=== PATIENT | female | born 1995 | race Caucasian/White ===

== ENCOUNTER 2017-11-11 16:36 | Outpatient (REF) | payer BC, SELFPAY | END 2017-11-11 16:37 | LOC: NCHCN 16:36 | PROVIDERS: PCP Internal Medicine; Visit Provider Physician Assistant Medical | DX: R30.0 Dysuria (principal) | CPT/HCPCS: 87086 ==

== ENCOUNTER 2017-11-16 12:27 | Outpatient (REF) | payer BC, SELFPAY ==
--- NOTE | 2017-11-16 16:30 | PAPFTD_PTH ---
PATIENT: Elizabeth Andres LOC: NCN U#:[id number] AGE/SX: 21/F ROOM: RE11/16/[address]: Lou Younger : 1995 BED: DIS: 11/16/2017 SPEC #: [id number] RECD: 11/17/17 12:58 STATUS: JAISON REQ #: [id number] LUIS: 11/16/17 16:[address]: Lou Younger DEPT: [facility] Cytology RECD BY: Chantale Bustamante ENTERED: 11/17/17 12:58 SP TYPE: PAPFTD NESHAHR DR: Vitor Holder Tissues: 1 - CX/ENDOCX FOR PAP SMEARS Procedures: PAP THIN PREP/UVM Diagnostic HPV DNA PROBE Comments: [id number] (CHLAMYDIA GC)
[2017-11-18 14:09] LABS: Chlamydia Result Negative; GC Result Negative; Specimen Description SEE COMMENTS
== END 2017-11-16 12:28 ==
LOC: NCHCN 12:27
PROVIDERS: PCP Internal Medicine; Visit Provider Nurse Practitioner Family
DX: Z11.3 Encounter for screening for infections with a predominantly sexual mode of transmission (principal); Z12.4 Encounter for screening for malignant neoplasm of cervix; Z11.51 Encounter for screening for human papillomavirus (HPV)
CPT/HCPCS: 87491; 87591; 88175; 87624

== ENCOUNTER 2018-06-10 21:31 | Emergency (ER) | payer BC, SELFPAY ==
[2018-06-10 21:34] VITALS: BP 160/90; PULSE 84; RESP 18; TEMP 37; O2SAT 99
--- NOTE | 2018-06-10 21:57 | ED.GENADUL_ITS ---
Discharge Plan Disposition Patient Disposition: HOME Condition: Improving Discharge Details Chief Complaint: CONSULTING MANAGER Clinical Impression: Urinary tract infection Primary Care Provider: Vitor Holder ED Provider: Mike Williamson Home Meds and New Rx's Prescriptions: New cephalexin 500 mg tablet 500 mg PO TID 5 Days Qty: 15 RF: 0 metronidazole [Flagyl] 500 mg tablet 500 mg PO BID Qty: 14 RF: 0 No Action permethrin 60 GM cream 60 gm Topical DIRECTED Qty: 1 RF: 0 Discharge Instructions Instructions: Urinary Tract Infection in Women (ED) Additional Instructions: Home to rest tonight. Take antibiotics as prescribed. As per discussed, if you have persistent vaginal discharge and signs of bacterial vaginosis after the treatment for urinary tract infection, may begin the prescribed Flagyl. No alcohol with this medication. Follow-up with [facility] at [phone] or [facility] to establish [facility] care. Return to the emergency department for any acute concern Medical Decision Making 22-year-old female with vaginal discomfort that has been burning but not itching over 2 days time similar to previous BV. States that she was seen at [facility] unremarkable workup for STDs and does not have any current active sexual partners. She is afebrile and well-appearing. UA with numerous WBC, Vag path negative. She has a history of recurrent BV. We will treat her for UTI. Discussed with her prescription in a pocket approach for persistent signs of bacterial vaginosis and will offer her a prescription of Flagyl. She is to follow-up and establish gynecologic care other with [facility] or [facility] General Mode of arrival: ambulatory . Date/Time Provider Initiated Documentation: 06/10/18 21:38 . Limitations to Documentation: no limitations . Information obtained by: patient . History of Present Illness 22 year old F presents to the emergency department with the chief complaint of Burning vaginal irritation, described as moderate, Quality is described as burning, and is localized to the pelvis and genitals. Patient reports no radiation. Patient started experiencing this day(s) and it has been constant. No relieving factors improve symptom(s), No exacerbating factors reported . Patient notes no other symptoms.; denies fever/chills. Patient did receive the following treatments prior to arrival, other ([id number] Azo) Related Data Home Medications Medication Instructions Recorded Confirmed permethrin 60 gm TOPICAL DIRECTED #1 tube 07/03/17 cephalexin 500 mg PO TID 5 Days #15 tab 06/10/18 metronidazole [Flagyl] 500 mg PO BID #14 tab 06/10/18 Previous Rx's Medication Instructions Recorded permethrin 60 gm TOPICAL DIRECTED #1 tube 07/03/17 cephalexin 500 mg PO TID 5 Days #15 tab 06/10/18 metronidazole [Flagyl] 500 mg PO BID #14 tab 06/10/18 Allergies Allergy/AdvReac Type Severity Reaction Status Date / Time No Known Allergies Allergy Unverified 07/03/17 11:36 General Stated Complaint: CONSULTING MANAGER ANETA: 3 Review of Systems Review of Systems 8 systems reviewed and otherwise neg [facility] Social History Smoking and Tabacco status: Never Exam Narrative Exam Narrative: GEN: awake, alert, oriented 3. Pleasant, well groomed, interactive. HEAD: Normocephalic, atraumatic ENT: Mucous membranes moist, oropharynx unremarkable, External ear exam unremarkable EYES: PERRL, EOMI NECK: Full ROM, no DIMITRI, no menigismus CHEST/RESP: Nontender, clear to auscultation bilateral, no wheeze/rhonchi/rales CARDIOVASCULAR: RRR, no murmur, rub home. 2+ Rad pulse bilateral ABDOMEN: Soft, nontender, no mass. +Bowel sounds. Vaginal exam reveals whitish discharge at vaginal introitus, no tenderness or mass EXT: Full ROM, no edema, no rash Neuro: Grossly normal neurologic exam, conversant, interactive. Psych: Speech fluent, thoughts congruent, affect normal Course Vital Signs Temperature 37.0 C 06/10/18 21:34 Pulse 84 06/10/18 21:34 Respiratory Rate 18 06/10/18 21:34 Blood Pressure 160/90 H 06/10/18 21:34 Pulse Oximetry 99 06/10/18 21:34 Temperature 37.0 C 06/10/18 21:34 Temperature Source Temporal Artery Scan 06/10/18 21:34 Pulse 84 06/10/18 21:34 Respiratory Rate 18 06/10/18 21:34 Blood Pressure 160/90 H 06/10/18 21:34 Blood Pressure Position Sitting 06/10/18 21:34 Pulse Oximetry 99 06/10/18 21:34 Oxygen Delivery Method Room Air 06/10/18 21:34 Oxygen Flow Rate 0 06/10/18 21:34 Pain Level 4 06/10/18 21:34
[2018-06-10 22:12] LABS: Clarity Cloudy
[2018-06-10 22:14] LABS: Epithelial Cells Many HPF (Negative); RBC Negative (0-2); WBC 20-50 HPF (0-5)
[2018-06-10 22:15] LABS: Bacteria Moderate HPF (Negative); C & S Indicated? No/Sq. Contamination; Casts Negative LPF (Negative); Crystals Negative HPF (Negative); Mucus Negative (Negative); Other Cells Negative (Negative)
[2018-06-10] MEDS: Cephalexin 500 MG CAP PO (23:02)
== END 2018-06-10 23:10 | disposition home or self-care (01) ==
PROVIDERS: Emergency Provider Emergency Medicine; PCP Internal Medicine
DX: N39.0 Urinary tract infection, site not specified (principal)
CPT/HCPCS: 81025; 99283; 81003; 81015; 87480; 87510; 87660

== ENCOUNTER 2019-11-16 19:17 | Outpatient (REF) | payer MEDICAID, SELFPAY ==
[2019-11-16 19:45] LABS: Anion Gap 8.4 mmol/L (3-11); BUN 19 mg/dL (7-18); CO2 26.6 mmol/L (21.0-32.0); CREATININE 0.85 mg/dL (0.55-1.02); Calcium 9.5 mg/dL (8.5-10.1); Chloride 106 mmol/L (98-107); Glucose 75 mg/dL (74-106); Magnesium 1.9 mg/dL (1.8-2.4); Potassium 4.4 mmol/L (3.5-5.1); Sodium 141 mmol/L (136-145); TSH (W/Ref FT4) 0.75 uIU/mL (0.36-3.74)
== END 2019-11-16 19:37 ==
LOC: NCHCN 19:17
PROVIDERS: PCP Internal Medicine; Visit Provider Nurse Practitioner Family
DX: R03.0 Elevated blood-pressure reading, without diagnosis of hypertension (principal); R00.2 Palpitations; Z87.59 Personal history of other complications of pregnancy, childbirth and the puerperium
CPT/HCPCS: 80048; 83735; 84443

== ENCOUNTER 2020-02-12 21:19 | Outpatient (REF) | payer MEDICAID, SELFPAY ==
[2020-02-21 17:57] LABS: SARS-CoV-2 RNA Undetected (Undetected); SARS-CoV-2 Specimen Source Nasal/Nares
== END 2020-02-12 21:39 ==
LOC: NCHCN 21:19
PROVIDERS: PCP Internal Medicine; Visit Provider Internal Medicine
DX: Z20.828 Contact with and (suspected) exposure to other viral communicable diseases (principal)
CPT/HCPCS: U0003

== ENCOUNTER 2020-04-10 15:19 | Outpatient (REF) | payer MEDICAID, SELFPAY ==
[2020-04-13 08:03] LABS: Chlamydia Result Negative (Negative); GC Result Negative (Negative)
== END 2020-04-10 15:39 ==
LOC: NCHCN 15:19
PROVIDERS: PCP Internal Medicine; Visit Provider Nurse Practitioner Family
DX: N89.8 Other specified noninflammatory disorders of vagina (principal); Z11.3 Encounter for screening for infections with a predominantly sexual mode of transmission
CPT/HCPCS: 87491; 87591; 87480; 87510; 87660

== ENCOUNTER 2021-07-31 13:00 | Outpatient (REF) | payer MEDICAID, SELFPAY ==
[2021-07-31 19:30] LABS: Abs Immature Grans 0.01 10^3/uL (0.0-0.06); Absolute Basophil Count 0.05 10^3/uL (0.0-0.2); Absolute Eosinophil Count 0.11 10^3/uL (0.0-0.7); Absolute Lymphocyte Count 1.11 10^3/uL (1.2-3.4); Absolute Neutrophil Count 3.92 10^3/uL (1.2-6.7); Basophils % 0.9; HCT 41.5 % (36.0-46.0); HGB 13.3 g/dL (11.2-15.7); Immature Grans % 0.2; Lymphocytes % 19.8; MCH 29.8 pg (27.0-33.0); MCV 92.8 fL (80-95); Monocytes % 7.1; Platelet Count 266 10^3/uL (130-400); RBC 4.47 10^6/uL (3.93-5.22); RDW 12.4 % (11.7-14.6); RDW-SD 42.6 fL
[2021-08-04 12:42] LABS: IgA 175 mg/dL (85-499); Interpretation (See Note); Tissue Transglutaminase IgA <1.2 U/mL (<4.0)
== END 2021-07-31 13:01 | disposition home or self-care (01) ==
LOC: NCHCN 13:00
PROVIDERS: PCP Internal Medicine; Visit Provider Nurse Practitioner Family
DX: R19.7 Diarrhea, unspecified (principal)
CPT/HCPCS: 82784; 83516; 87329; 87338; 83630; 85025

== ENCOUNTER 2021-08-04 19:05 | Outpatient (REF) | payer MEDICAID, SELFPAY ==
[2021-08-06 14:34] LABS: Helicobacter pylori Ag, Feces Negative (Negative)
== END 2021-08-04 19:06 | disposition home or self-care (01) ==
LOC: NCHCN 19:05
PROVIDERS: PCP Internal Medicine; Visit Provider Nurse Practitioner Family
DX: R19.7 Diarrhea, unspecified (principal)
CPT/HCPCS: 87329; 87338; 83630

== ENCOUNTER 2021-08-04 21:16 | Outpatient (REF) | payer MEDICAID, SELFPAY | END 2021-08-04 21:17 | disposition home or self-care (01) | LOC: NCHCN 21:16 | PROVIDERS: PCP Internal Medicine; Visit Provider Nurse Practitioner Family ==

== ENCOUNTER → 2023-01-15 00:56 | Outpatient (CLI) | payer MEDICAID, SELFPAY ==
--- NOTE | 2023-01-15 | DI.US_ITS ---
Exam(s) US ABDOMEN EXAM: US ABDOMEN CLINICAL HISTORY: ELEVATED LFT'S R79.89 EPIGASTRIC PAIN R10.13 TECHNIQUE: Ultrasound abdomen performed using standard protocol. COMPARISON: No exams were available for comparison FINDINGS: LIVER: Normal size and echogenicity. No focal liver lesions are seen. GALLBLADDER: No evidence of cholelithiasis. No evidence of wall thickening. No pericholecystic fluid identified. ORDAZ'S SIGN: Negative. BILIARY SYSTEM: No intrahepatic or extrahepatic biliary ductal dilation. KIDNEYS: Kidneys are symmetric in size. No evidence of renal calculi. No evidence of hydronephrosis. No renal mass or cyst identified. PANCREAS: Normal where visualized. SPLEEN: Not enlarged. ABDOMINAL AORTA AND IVC: Visualized portions normal caliber. ASCITES: None seen. IMPRESSION: Normal sonographic appearance of the upper abdomen. DATA REPOSITORY:
== END ==
PROVIDERS: PCP Internal Medicine; Visit Provider Nurse Practitioner Family
DX: R10.13 Epigastric pain (principal); R79.89 Other specified abnormal findings of blood chemistry
CPT/HCPCS: 76700

== ENCOUNTER 2023-06-28 19:30 | Outpatient (REF) | payer MEDICAID, SELFPAY ==
[2023-06-28 21:03] LABS: Source Nasal/Nares
[2023-06-28 22:41] LABS: COVID-19 PCR Negative (Negative)
[2023-06-28 23:23] LABS: MRSA PCR Negative (Negative)
== END 2023-06-28 19:31 | disposition home or self-care (01) ==
LOC: LBN 19:30
PROVIDERS: PCP Nurse Practitioner Family; Visit Provider Nurse Practitioner Family
DX: J02.9 Acute pharyngitis, unspecified (principal); J34.89 Other specified disorders of nose and nasal sinuses; Z11.2 Encounter for screening for other bacterial diseases; Z11.52 Encounter for screening for COVID-19
CPT/HCPCS: 87635; 87641; 87070

== ENCOUNTER 2023-08-15 07:56 | Emergency (ER) | payer MEDICAID, SELFPAY ==
[2023-08-15 08:06] VITALS: BP 141/96; PULSE 74; RESP 16; TEMP 36.4; O2SAT 100
--- NOTE | 2023-08-15 08:14 | DI.RAD_ITS ---
Exam(s) XR FOOT RT COMPLETE EXAM: XR FOOT RT COMPLETE CLINICAL HISTORY: right foot pain, 1st metatarsal. TECHNIQUE: 2D digital imaging was performed. Three views. COMPARISON: No exams were available for comparison FINDINGS: BONES: No acute fracture is present. No bony destructive lesion is seen. JOINTS: No dislocation present. SOFT TISSUE: Normal. IMPRESSION: Unremarkable radiographs of the right foot. DATA REPOSITORY: RADIATION DOSE DELIVERED:
--- NOTE | 2023-08-15 09:28 | DI.VRAD_ITS ---
PROCEDURE INFORMATION: Exam: XR Right Foot Exam date and time: 08/15/2023 8:24 AM Age: 27 years old Clinical indication: Pain; Foot; Right TECHNIQUE: Imaging protocol: Radiologic exam of the right foot. Views: 3 or more views. COMPARISON: MRI R LOWER JOINT WO CONT 02/26/2017 3:50 PM FINDINGS: Bones/joints: Normal. Soft tissues: Normal. IMPRESSION: No acute findings. Dictated and Authenticated by: Allen Diallo MD. Ordering:INGE Kenyon MD
--- NOTE | 2023-08-15 12:00 | ED.GENADUL_ITS ---
Discharge Plan Disposition Patient Disposition: Home Condition: Stable Discharge Details Clinical Impression: Foot fracture, right Primary Care Provider: Shena Morrow ED Provider: Chantale Sheridan Home Meds and New Rx's Prescriptions: Continued fluoxetine 40 mg capsule 40 mg PO DAILY Discharge Instructions Additional Instructions: motrin/tylenol for pain use crutches and post op shoe follow-up with orthopedics next week return earlier with worsening pain, skin discoloration, or should new concerns arise Referrals: Shena Morrow [Primary Care Provider] - HPI General Date/Time Provider Initiated Documentation: 08/15/23 08:07 . HPI Narrative: this 27-year-old female presents with right foot pain. Patient denies any additional injuries. States that she kicked a rock. Denies chance of . Related Data Home Medications Medication Instructions Recorded Confirmed fluoxetine 40 mg capsule 40 mg PO DAILY 12/09/21 08/15/23 Allergies Allergy/AdvReac Type Severity Reaction Status Date / Time No Known Allergies Allergy Unverified 08/15/23 08:20 General Stated Complaint: Orthopedic ANETA: 4 Course Vital Signs Vital signs: Vital Signs Temperature 36.4 C L 08/15/23 08:06 Pulse 74 08/15/23 08:06 Respiratory Rate 16 08/15/23 08:06 Blood Pressure 141/96 H 08/15/23 08:06 Pulse Oximetry 100 08/15/23 08:06 Temperature 36.4 C L 08/15/23 08:06 Temperature Source Temporal Artery Scan 08/15/23 08:06 Pulse 74 08/15/23 08:06 Respiratory Rate 16 08/15/23 08:06 Respiratory Effort Normal, Non-Labored 08/15/23 08:24 Blood Pressure 141/96 H 08/15/23 08:06 Pulse Oximetry 100 08/15/23 08:06 Oxygen Delivery Method Room Air 08/15/23 08:06 Oxygen Flow Rate 0 08/15/23 08:06 Medical Decision Making This 27-year-old female presents with right foot pain. She states she kicked a rock. She denies chance of and has tenderness between the first and second metatarsal, there is some swelling and reproducible tenderness at this site. She is neurovascularly intact. Denies any additional complaints at this time. On x-ray I am concerned that she has a fracture to her proximal metatarsal, this looks like an avulsion. She will be placed in a postop shoe and given crutches and referred to orthopedics for reassessment. On reassessment vRad has interpreted the x-ray is negative but she has point tenderness over the area of concern, I will refer to orthopedics and have patient take Motrin and Tylenol for supportive care. Return precautions reviewed and patient expressed understanding Quality:SDOH Health Related Social Needs: No Data to Display PFSH All Active Problems (Updated 08/15/23 @ 09:02 by NITHYA Knight) Foot fracture, right (Acute) Heavy menstrual bleeding (Acute) Pelvic pain (Acute) Anxiety (Chronic) Depression (Chronic) Medical History (Updated 08/15/23 @ 09:02 by NITHYA Knight) Inflammatory bowel disease Hypertension affecting Anemia Family History (Updated 12/09/21 @ 11:56 by Olivia Seth, RN) Other Family history of clotting disorder Hyperlipidemia Hypertension Osteoporosis Stroke Thyroid disease Social History (Updated 12/09/21 @ 12:01 by Olivia Seth RN) Smoking/Tobacco Use Status: Never Smoking risk assessment performed?: Yes Alcohol Intake: current Alcohol Intake frequency: a few times a month Drug use: Never Household members: children current occupation: Resident Physician Do you feel safe at home: Yes Do you feel safe in your relationship?: Yes Female Reproductive History Menstrual Duration of menses: 3-5 days control method: none History History 1 Para 1 Hx # Term Pregnancies Multiple births Hx # Pregnancies Ectopic pregnancies AB induced Hx Number of Living Children AB spontaneous Past Pregnancies Del. Date GA/Weeks # Preg Succ Route Wgt Sex Labor Lgth Anesth esia Location [facility] 08/29/19 40 No Yes vaginal 3401.943 g Male Delivery Date: 08/29/19 Last Updated by: Olivia Seth pt reports pre- eclampsia- [place], born in [place], [place]
== END 2023-08-15 09:33 | disposition home or self-care (01) ==
PROVIDERS: Emergency Provider Physician Assistant; PCP Nurse Practitioner Family
DX: S92.901A Unspecified fracture of right foot, initial encounter for closed fracture (principal); W22.8XXA Striking against or struck by other objects, initial encounter; Y93.89 Activity, other specified
CPT/HCPCS: 99283; 73630

== ENCOUNTER 2024-03-08 15:03 | Outpatient (REF) | payer MEDICAID, SELFPAY ==
--- OUTSIDE RECORDS SUMMARY | 2024-03-08 15:06 | XMS_ITS | Encounter Summary ---
[place] [address] Care Team Providers Care Subway Operator Name Role Phone Vitor Holder MD Primary Care Provider Reason for Referral * Consultation (Routine) - Closed Specialty Diagnoses / Procedures Referred By Contac t Referred To Contact Gastroenterology Diagnoses Rectal pain Diarrhea, unspecified type 5 year history of chronic diarrhea, rectal pain; predominant IBS Procedures Consult Shena Morrow APRN [address] [place] [id number] [facility] [address] [place] [phone] Referral ID Status Reason Start Date Expiration Date V isits Requested Visits Authorized [id number] Closed Consult, Test & Treat PCP Updated and/or Approved 08/05/2021 08/05/2022 6 6 Encounter Details Date Type Department Care Team (Late st Contact Info) Description 08/05/2021 Transcribe Orders eD Incoming Referrals [phone] Meghan Ace Rectal pain; Diarrhea, unspecified type Social History Tobacco Use Types Packs/Day Years Used Date Smoking Tobacco: Never Assessed Sex and Gender Information Value Date Recorded Sex Assigned at Not on file Gender Identity Not on file Sexual Orientation Not on file documented as of this encounter Plan of Treatment Scheduled Referrals Name Type Priority Associated Diagnoses Order Schedule Referral to Gastroenterology Outpatient Referral Routine Rectal pain Diarrhea, unspecified type Ordered: 08/05/2021 documented as of this encounter Visit Diagnoses Diagnosis Rectal pain Anal or rectal pain Diarrhea, unspecified type documented in this encounter Care Teams Subway Operator Relationship Specialty Start Date End Date Vitor Holder MD [address] [address] PCP - General 03/04/10 08/19/21 documented as of this encounter
--- OUTSIDE RECORDS SUMMARY | 2024-03-08 15:06 | XMS_ITS | Encounter Summary ---
Author Organization [facility] Address [address] [place] [address] Care Team Providers Care Sleeve Bottom Feller Name Role Phone Unknown, Provider Primary Care Provider Laya martinez Encounter Details Date Type Department Care Team (Late st Contact Info) Description 08/07/2021 Lab Requisition [facility] Pathology & Laboratory Medicine - [address] [phone] Outr Resulting Lab, Provider Social History Tobacco Use Types Packs/Day Years Used Date Smoking Tobacco: Never Assessed Comments Unknown Sex and Gender Information Value Date Recorded Sex Assigned at Not on file Legal Sex Female 18:17 EST Gender Identity Not on file Sexual Orientation Not on file documented as of this encounter Plan of Treatment Not on file documented as of this encounter Procedures Procedure Name Priority Date/Time Associated Diagnosis Comments H. PYLORI ANTIGEN Routine 08/07/2021 19: 13 EDT documented in this encounter Results * H. PYLORI ANTIGEN (08/07/2021 19:13 EDT) H. Pylori Negative Negative 08/11/2021 13:46 EDT [facility] Comment:Performance characte ristics have not been established for watery, diahrrheal stools. Suggest repeat testing if clinically indicated. Feces SPECIMEN FROM RECTUM / Unknown 08/07/2021 19:13 EDT 08/08/2021 20:40 EDT Narrative [facility] - 08/11/2021 13:46 EDT Results were obtained with the [place] [facility] [place]. us Provider Outr Resulting Lab MICROBIOLOGY - GENER AL ORDERABLES Final Result [facility] [address] [place] [address] documented in this encounter Visit Diagnoses Not on filedocumented in this encounter Care Teams Sleeve Bottom Feller Relationship Specialty Start Date End Date Unknown, Provider, PCP - General 11/18/17 documented as of this encounter
--- OUTSIDE RECORDS SUMMARY | 2024-03-08 15:06 | XMS_ITS | Encounter Summary ---
Author Organization [facility] Address [facility] [place] [address] Care Team Providers Care Clinical Laboratory Technician Name Role Phone Shena Morrow APRN Primary Care Provider [phone] Encounter Details Date Type Department Care Team (Late st Contact Info) Description 10/01/2021 Notes [place] [id number] Evelyn Martinez APRN [facility] [place] [address] Social History Tobacco Use Types Packs/Day Years Used Date Smoking Tobacco: Never Assessed Sex and Gender Information Value Date Recorded Sex Assigned at Not on file Gender Identity Not on file Sexual Orientation Not on file documented as of this encounter Progress Notes * Evelyn Martinez APRN - 10/01/2021 8:18 AM EDTSummary: Missed telehealth visit for GI Tried calling patient for telehealth visit: sent straight to and VM is full. Unable to leave message; pt will need to reschedule documented in this encounter Plan of Treatment Not on file documented as of this encounter Visit Diagnoses Not on filedocumented in this encounter Care Teams Clinical Laboratory Technician Relationship Specialty Start Date End Date Shena Morrow APRN [address] [place] [address] PCP - General Family Medicine 08/20/21 documented as of this encounter
--- OUTSIDE RECORDS SUMMARY | 2024-03-08 15:06 | XMS_ITS | Encounter Summary ---
Author Organization [facility] Address [address] [place] [address] Care Team Providers Care Fire Control System Installer Name Role Phone Unknown, Provider Primary Care Provider Unava ilable Encounter Details Date Type Department Care Team (Late st Contact Info) Description 06/08/2019 Lab Requisition [facility] Pathology & Laboratory Medicine - [address] [address] Catrina Lee, VISUAL MERCHANDISING DIRECTOR [address] [place] [id number] Dysuria Social History Tobacco Use Types Packs/Day Years [...] Procedure Name Priority Date/Time Associated Diagnosis Comments BACTERIAL CULTURE, URINE Today 06/08/2019 12:35 EST Dysuria documented in this encounter Results * (ABNORMAL) BACTERIAL CULTURE, URINE (06/08/2019 12:35 EST) Organism ID Greater than 100,000 CFU/ml Escherichia coli(A) VITEK SUSCEPTIBILITY 06/10/2019 11:19 EST [facility] Comment: Cefazolin susceptibility results can be used to predict susceptibility results for the following oral cephalosporins when used for therapy of uncomplicated UTIs due to E.coli, K.pneumoniae, and P.mirabilis: cefaclor, cefdinir, cefpodoxime, cefprozil, cefuroxime, cephalexin, loracarbef. Cefdinir, cefpodoxime, and cefuroxime may be tested individually because some isolates may be susceptibile to these agents while testing resistance to cefazolin. Please note that only cefpodoxime and cephalexin are on the [facility] inpatient formulary. Urine URINE SPECIMEN OBTAINED BY CLEAN CATCH PROCEDURE / Unknown 06/08/2019 12:35 EST 06/08/2019 17:00 EST Narrative Organism Antibiotic Method Susceptibility Escherichia coli Ampicillin VITEK SUSCEPTIBILITY <=2 ug/mL: Susceptible Escherichia coli Cefazolin VITEK SUSCEPTIBILITY <=4 ug/mL: Susceptible Escherichia coli Ceftriaxone VITEK SUSCEPTIBILITY <=1 ug/mL: Susceptible Escherichia coli Ciprofloxacin VITEK SUSCEPTIBILITY <=0.25 ug/mL: Susceptible Escherichia coli Ertapenem VITEK SUSCEPTIBILITY <=0.5 ug/mL: Susceptible Escherichia coli Meropenem VITEK SUSCEPTIBILITY <=0.25 ug/mL: Susceptible Escherichia coli Nitrofurantoin VITEK SUSCEPTIBILITY <=16 ug/mL: Susceptible Escherichia coli Piperacillin Tazobactam VITEK SUSCEPT IBILITY <=4 ug/mL: Susceptible Escherichia coli Trimethoprim-Sulfame thox azole VITEK SUSCEPTIBILITY <=20 ug/mL: Susceptible us Catrina Lee NP MICROBIOLOGY - GENERAL JULIEN BELLA Final Result [facility] [address] [place] [address] documented in this encounter Visit Diagnoses Diagnosis Dysuria documented in this encounter Care Teams Fire Control System Installer Relationship Specialty Start Date End Date Unknown, Provider, PCP - General 11/18/17 documented as of this encounter
--- OUTSIDE RECORDS SUMMARY | 2024-03-08 15:06 | XMS_ITS | Encounter Summary ---
Author Organization [facility] Address [address] [place] [address] Care Team Providers Care Battery Tester Name Role Phone Unknown, Provider Primary Care Provider Laya ilphoebe Encounter Details Date Type Department Care Team (Late st Contact Info) Description 08/05/2021 Lab Requisition [facility] Pathology & Laboratory Medicine - [address] [id number] Outr Resulting Lab, Provider Social History Tobacco [...] Associated Diagnosis Comments H. PYLORI ANTIGEN Routine 08/04/2021 12: 17 EDT documented in this encounter Results * H. PYLORI ANTIGEN (08/04/2021 12:17 EDT) H. Pylori Negative Negative 08/06/2021 14:29 EDT [facility] Feces SPECIMEN FROM RECTUM / Unknown 08/04/2021 12:17 EDT 08/06/2021 8:21 EDT Narrative [facility] - 08/06/2021 14:29 EDT Results were obtained with the [employer] [place] [facility] [place]. us Provider Outr Resulting Lab MICROBIOLOGY - GENER AL ORDERABLES Final Result [facility] [address] [place] [address] documented in this encounter Visit Diagnoses Not on filedocumented in this encounter Care Teams Battery Tester Relationship Specialty Start Date End Date Unknown, Provider, PCP - General 11/18/17 documented as of this encounter
--- OUTSIDE RECORDS SUMMARY | 2024-03-08 15:06 | XMS_ITS | Referral Summary ---
Author Organization [facility] Address [address] [place] [address] Care Team Providers Care Diabetes Specialist Name Role Phone Unknown, Provider Primary Care Provider Unava ilable Encounters Date Type Department Care Team Description 01/06/2024 Lab Requisition [facility] Pathology & Laboratory Medicine - [address] [address] Reyna Rodriguez CNM Encounter for screening for human papillomavirus (HPV); Encounter for gynecological examination (general) (routine) without abnormal findings from Last 3 Months Social History Tobacco Use Types Packs/Day Years Used Date Smoking Tobacco: Never Assessed Comments Unknown Sex and Gender Information Value Date Recorded Sex Assigned at Not on file Legal Sex Female 18:17 EST Gender Identity Not on file Sexual Orientation Not on file Plan of Treatment Not on file Procedures Procedure Name Priority Date/Time Associated Diagnosis Comments PAP TEST Today 01/06/2024 14:20 EDT Encounter for screening for human papillomavirus (HPV) Encounter for gynecological examination (general) (routine) without abnormal findings HEPATITIS C AB W REFLEX TO HCV RNA BY PCR Routine 04/16/2022 8:45 EST from Last 3 Months or Most Recently Relevant to Health Maintenance Results * PAP TEST (01/06/2024 14:20 EDT) Specimens A. Cervix and/or Endocervix , ThinPrep Imaging System with Manual Evaluation 01/17/2024 15:36 EDT [facility] Specimen Adequacy Unsatisfactory for evaluation-Insuf ficient number of squamous epithelial cells. Specimen processed and examined but compromised by excess blood. 01/17/2024 15:36 EDT [facility] General Categorization Unsatisfactory 01/17/2024 15:36 EDT [facility] Educational Comments An additional slide was prepared and evaluated. Unsatisfactory - Specimen processed and examined, but unsatisfactory for evaluation of epithelial abnormality. Recommend repeat age-based screening after 2-4 months per ASCCP Guidelines which may be found at www.asccp.org. HPV testing will not be performed due to the potential for false negative results. 01/17/2024 15:36 EDT [facility] Attestation . 01/17/2024 15:36 EDT [facility] at 1536 Clinical History See below 01/17/20 15:36 T [facility] Performing Lab [facility] 01/17/2024 15:36 T [facility] Scanned Images 01/17/2024 15:36 EDT [facility] Pap Test CERVIX UTERI STRUCTURE / Unknown 01/06/2024 14:20 EDT 01/07/2024 12:33 EDT us Reyna Rodriguez [facility] PATHOLOGY ORDERABLES Fin al Result [facility] [address] [place] [address] * HEPATITIS C AB W REFLEX TO HCV RNA BY PCR (04/16/2022 8:45 EST) Hep C Antibody Negative Negative 04/17/2022 10:06 EST [facility] Blood VENOUS BLOOD / Unknown 04/16/2022 8:45 EST 04/16/2022 21:29 EST us Provider Outr Resulting Lab CHEMISTRY & BLOOD GA S ORDERABLES Final Result [facility] [address] [place] [address] from Last 3 Months or Most Recently Relevant to Health Maintenance Care Teams Diabetes Specialist Relationship Specialty Start Date End Date Unknown, Provider, PCP - General 11/18/17
--- OUTSIDE RECORDS SUMMARY | 2024-03-08 15:06 | XMS_ITS | Encounter Summary ---
Author Organization [facility] Address [address] [place] [address] Care Team Providers Care Abrasive Coating Machine Operator Name Role Phone Unknown, Provider Primary Care Provider Unazachary ilable Encounter Details Date Type Department Care Team (Late st Contact Info) Description 04/16/2022 Lab Requisition [facility] Pathology & Laboratory Medicine - [address] [address] Outr Resulting Lab, Provider Social History Tobacco [...] Procedure Name Priority Date/Time Associated Diagnosis Comments SYPHILIS SEROLOGY Routine 04/16/2022 8:4 5 EST HEPATITIS C AB W REFLEX TO HCV RNA BY PCR Routine 04/16/2022 8:45 EST RUBELLA IGG ANTIBODY Routine 04/16/2022 8:45 EST HEPATITIS B SURFACE ANTIGEN Routine 04/16/2022 8:45 EST HIV 1/2 ANTIGEN AND ANTIBODY, 4TH GENERATION Routine 04/16/2022 8:45 EST documented in this encounter Results * HEPATITIS C AB W REFLEX TO HCV RNA BY PCR (04/16/2022 8:45 EST) Hep C Antibody Negative Negative 04/17/2022 10:06 EST [facility] Blood VENOUS BLOOD / Unknown 04/16/2022 8:45 EST 04/16/2022 21:29 EST us Provider Outr Resulting Lab CHEMISTRY & BLOOD GA S ORDERABLES Final Result Performing Organization Address [facility] Co de Phone Number [facility] [address] [place] [address] * HIV 1/2 ANTIGEN AND ANTIBODY, 4TH GENERATION (04/16/2022 8:45 EST) HIV 1 and 2 Antibody/p24 Antigen, 4th Generation Negative Negative 04/17/2022 9:55 EST [facility] Comment:If acute HIV-1 infec tion is suspected in a high risk patient, submit plasma specimen for HIV-1 RNA quantitation test. Blood VENOUS BLOOD / Unknown 04/16/2022 8:45 EST 04/16/2022 21:29 EST Narrative [facility] - 04/17/2022 9:55 EST Fourth Generation assay performed on the Siemens Centaur XPT. us Provider Outr Resulting Lab IMMUNOLOGY AND SEROL OGY ORDERABLES Final Result Performing Organization Address [facility] Co de Phone Number [facility] [address] [place] [address] * SYPHILIS SEROLOGY (04/16/2022 8:45 EST) Syphilis Serology Negative Negative 04/17/2022 11:19 EST [facility] Blood VENOUS BLOOD / Unknown 04/16/2022 8:45 EST 04/16/2022 21:29 EST us Provider Outr Resulting Lab IMMUNOLOGY AND SEROL OGY ORDERABLES Final Result Performing Organization Address [facility]/ZIP Co de Phone Number [facility] [address] [place] [address] * RUBELLA IGG ANTIBODY (04/16/2022 8:45 EST) Rubella IgG Ab Positive See Note 04/17/2022 11:21 EST [facility] Comment:Positive for IgG ant ibodies to Rubella virus. Blood VENOUS BLOOD / Unknown 04/16/2022 8:45 EST 04/16/2022 21:29 EST us Provider Outr Resulting Lab CHEMISTRY & BLOOD GA S ORDERABLES Final Result Performing Organization Address [facility] Co de Phone Number [facility] [address] [place] [address] * HEPATITIS B SURFACE ANTIGEN (04/16/2022 8:45 EST) Hep B Surface Ag Negative Negative 04/17/2022 10:16 EST [facility] Blood VENOUS BLOOD / Unknown 04/16/2022 8:45 EST 04/16/2022 21:29 EST us Provider Outr Resulting Lab CHEMISTRY & BLOOD GA S ORDERABLES Final Result Performing Organization Address [facility] de Phone Number [facility] [address] [place] [address] documented in this encounter Visit Diagnoses Not on filedocumented in this encounter Care Teams Abrasive Coating Machine Operator Relationship Specialty Start Date End Date Unknown, Provider, PCP - General 11/18/17 documented as of this encounter
--- OUTSIDE RECORDS SUMMARY | 2024-03-08 15:06 | XMS_ITS | Encounter Summary ---
Author Organization [facility] Address [address] [place] [address] Care Team Providers Care Electric Well Logging Operator Name Role Phone Unknown, Provider Primary Care Provider Laya martinez Encounter Details Date Type Department Care Team (Late st Contact Info) Description 12/06/2020 Lab Requisition [facility] Pathology & Laboratory Medicine - [address] [id number] Outr Resulting Lab, Provider Social History Tobacco [...] Procedure Name Priority Date/Time Associated Diagnosis Comments CHLAMYDIA/N. GONORRHOEAE AMPLIFIED NUCLEIC ACID, THINPREP Routine 12/06/2020 14:51 EDT documented in this encounter Results * CHLAMYDIA/N. GONORRHOEAE AMPLIFIED RNA, THINPREP (12/06/2020 14:51 EDT) Neisseria gonorrhoeae Result Negative Negative 12/09/2020 15:11 EDT [facility] Chlamydia trachomatis Result Negative Negative 12/09/2020 15:11 EDT [facility] Papanicolaou smear specimen (specimen) CERVIX UTERI STRUCTURE / Unknown 12/06/2020 14:51 EDT 12/09/2020 8:34 EDT us Provider Outr Resulting Lab MICROBIOLOGY - GENER AL ORDERABLES Final Result [facility] [address] [place] [address] documented in this encounter Visit Diagnoses Not on filedocumented in this encounter Care Teams Electric Well Logging Operator Relationship Specialty Start Date End Date Unknown, Provider, PCP - General 11/18/17 documented as of this encounter
--- OUTSIDE RECORDS SUMMARY | 2024-03-08 15:06 | XMS_ITS | Encounter Summary ---
Author Organization [facility] Address [address] [place] [address] Care Team Providers Care Senior Marketing Engineer Name Role Phone Unknown, Provider Primary Care Provider Unazachary ilable Encounter Details Date Type Department Care Team (Latest Contact Info) Description 12/06/2020 Lab Requisition [facility] Pathology & Laboratory Medicine - [address] [address] Reyna Rodriguez, [address] [address] Encounter for gynecological examination (general) (routine) without abnormal findings Social History Tobacco Use Types Packs/Day Years [...] Date/Time Associated Diagnosis Comments PAP TEST Today 12/06/2020 14:51 EDT documented in this encounter Results * PAP TEST (12/06/2020 14:51 EDT) Specimens A. 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 Reactive cellular changes associated with inflammation present (includes repair). 12/23/2020 9:22 EDT [facility] Attestation By the signature below, the attending physician certifies that they have personally conducted a gross and/or microscopic examination of the described specimens and rendered or confirmed the above diagnosis. 12/23/2020 9:22 EDT [facility] at 0922 Clinical History Clinical History, Signs, Symptoms, Chief Complaint, Pertaining to This Order: See below Other Clinical History/Order Comments: 11.27 NEG 12/23/2020 9:22 EDT [facility] Performing Lab [facility] 12/23/2020 9:22 EDT [facility] Scanned Images 12/23/2020 9:22 EDT [facility] Papanicolaou smear specimen (specimen) CERVIX UTERI STRUCTURE / Unknown 12/06/2020 14:51 EDT 12/09/2020 15:44 EDT us Reyna Rodriguez [facility] PATH[facility] ORDERABLES Fin al Result [facility] [address] [place] [address] documented in this encounter Visit Diagnoses Diagnosis Encounter for gynecological examination (general) (routine) without abnormal findings documented in this encounter Care Teams Senior Marketing Engineer Relationship Specialty Start Date End Date Unknown, Provider, PCP - General 11/18/17 documented as of this encounter
--- OUTSIDE RECORDS SUMMARY | 2024-03-08 15:06 | XMS_ITS | Encounter Summary ---
Author Organization [facility] Address [address] [place] [address] Care Team Providers Care Curator Medical Museum Name Role Phone Unknown, Provider Primary Care Provider Laya ilphoebe Encounter Details Date Type Department Care Team (Late st Contact Info) Description 04/11/2020 Lab Requisition [facility] Pathology & Laboratory Medicine - [address] [address] Outr Resulting Lab, Provider Social History Tobacco [...] Associated Diagnosis Comments CHLAMYDIA/N. GONORRHOEAE AMPLIFIED NUCLEIC ACID Routine 04/10/2020 11:30 EST documented in this encounter Results * CHLAMYDIA/N. GONORRHOEAE AMPLIFIED RNA (04/10/2020 11:30 EST) Neisseria gonorrhoeae Result Negative Negative 04/13/2020 7:[address] [facility] Chlamydia trachomatis Result Negative Negative 04/13/2020 7:[address] [facility] Urine URINE / Unknown 04/10/2020 1 1:30 EST 04/11/2020 18:[address] [facility] - 04/13/2020 7:58 EST A first catch urine specimen is acceptable for detection of Gonorrhea and Chlamydia, but might detect up to 10% fewer infections when compared with vaginal and endocervical swab samples. us Provider Outr Resulting Lab MICROBIOLOGY - [facility] AL ORDERABLES Final Result [facility] [address] [place] [address] documented in this encounter Visit Diagnoses Not on filedocumented in this encounter Care Teams Curator Medical Museum Relationship Specialty Start Date End Date Unknown, Provider, PCP - General 11/18/17 documented as of this encounter
--- OUTSIDE RECORDS SUMMARY | 2024-03-08 15:06 | XMS_ITS | Encounter Summary ---
Author Organization [facility] Address [address] [place] [address] Care Team Providers Care Mail Clerk Bills Name Role Phone Unknown, Provider Primary Care Provider Laya martinez Encounter Details Date Type Department Care Team (Latest Contact Info) Description 01/06/2024 Lab Requisition [facility] Pathology & Laboratory Medicine - [address] [address] Reyna Rodriguez, [address] [phone] Encounter for screening for human papillomavirus (HPV); [...] without abnormal findings documented in this encounter Results * PAP TEST (01/06/2024 14:20 EDT) Specimens A. Cervix and/or Endocervix , ThinPrep Imaging System with Manual Evaluation 01/17/2024 15:36 EDT [facility] Specimen Adequacy Unsatisfactory for evaluation-Insuf ficient number of squamous epithelial cells. Specimen processed and examined but compromised by excess blood. 01/17/2024 15:36 EDT [facility] General Categorization Unsatisfactory 01/17/2024 15:36 EDT [facility] Educational Comments An additional slide was prepared and evaluated. Unsatisfactory - Specimen processed and examined, but unsatisfactory for evaluation of epithelial abnormality. Recommend repeat age-based screening after 2-4 months per ASCCP Guidelines which may be found at www.asccp.org. HPV testing will not be performed due to the potential for false negative results. 01/17/2024 15:36 EDT [facility] Attestation . 01/17/2024 15:36 EDT [facility] at 1536 Clinical History See below 01/17/20 15:36 EDT [facility] Performing Lab [facility] 01/17/2024 15:36 T [facility] Scanned Images 01/17/2024 15:36 T [facility] Pap Test CERVIX UTERI STRUCTURE / Unknown 01/06/2024 14:20 EDT 01/07/2024 12:33 EDT us Reyna Rodriguez [facility] PATHOLOGY ORDERABLES Fin al Result [facility] [address] [place] [address] documented in this encounter Visit Diagnoses Diagnosis Encounter for screening for human papillomavirus (HPV) Special screening examination for human papillomavirus (HPV) Encounter for gynecological examination (general) (routine) without abnormal findings documented in this encounter Care Teams Mail Clerk Bills Relationship Specialty Start Date End Date Unknown, Provider, PCP - General 11/18/17 documented as of this encounter
--- OUTSIDE RECORDS SUMMARY | 2024-03-08 15:06 | XMS_ITS | Clinical Summary ---
Author Organization [facility] [place] [address] Care Team Providers Care Seismic Computer Name Role Phone Shena Morrow APRN Primary Care Provider +1- [phone] Social History Tobacco Use Types Packs/Day Years Used Date Smoking Tobacco: Never Assessed Sex and Gender Information Value Date Recorded Sex Assigned at Not on file Gender Identity Not on file Sexual Orientation Not on file Plan of Treatment Health Maintenance Due Date Last Done Comments HIV screen 2014 Hepatitis C Screening 2014 Hepatitis B vaccine (0-59 yrs) (1) 12/27/2015 Tetanus/Diphtheria/Pertussis Vaccines (1 - Tdap) 12/26 PAP Smear 2017 Covid-19 Vaccine ( - 2023-25 season) 2023 Influenza (Flu) vaccine (1 o f 1 - Influenza standard series) 12/12/2023 Care Teams Seismic Computer Relationship Specialty Start Date End Date Shena Morrow APRN [address] [place] [address] PCP - General Family Medicine 08/20/21
--- OUTSIDE RECORDS SUMMARY | 2024-03-08 15:06 | XMS_ITS | Encounter Summary ---
Author Organization [facility] [place] [address] Care Team Providers Care Operations Welder Name Role Phone Shena Morrow APRN Primary Care Provider +1- [phone] Encounter Details Date Type Department Care Team (Late st Contact Info) Description 09/30/2021 Telephone [place] [phone] Teri Tillman Social History Tobacco Use Types Packs/Day Years Used Date Smoking Tobacco: Never Assessed Sex and Gender Information Value Date Recorded Sex Assigned at Not on file Gender Identity Not on file Sexual Orientation Not on file documented as of this encounter Miscellaneous Notes * Telephone Encounter - Teri Tillman - 09/30/2021 10:06 AM EDT The GI Telehealth Educate Team attempted to contact patient to check their readiness for their upcoming telehealth visit in GI. We were unable to reach the patient and unable to leave a message as the voicemail box was full. Teri Clinical [facility] documented in this encounter Plan of Treatment Not on file documented as of this encounter Visit Diagnoses Not on filedocumented in this encounter Care Teams Operations Welder Relationship Specialty Start Date End Date Shena Morrow APRN [address] [place] [address] PCP - General Family Medicine 08/20/21 documented as of this encounter
--- OUTSIDE RECORDS SUMMARY | 2024-03-08 15:06 | XMS_ITS | Encounter Summary ---
Author Organization [facility] Address [facility] [place] [address] Care Team Providers Care Engineering Technical Analyst Name Role Phone Shena Morrow APRN Primary Care Provider +1- [phone] Encounter Details Date Type Department Care Team (Latest Contact Info) Description 08/20/2021 10:02 PM EDT - 08/20/2021 11:59 PM EDT [place] [address] Discharge Disposition: Home Social History Tobacco Use Types Packs/Day Years Used Date Smoking Tobacco: Never Assessed Sex and Gender Information Value Date Recorded Sex Assigned at Not on file Gender Identity Not on file Sexual Orientation Not on file documented as of this encounter Plan of Treatment Not on file documented as of this encounter Procedures Procedure Name Priority Date/Time Associated Diagnosis Comments SURGICAL PATHOLOGY REPORT Routine 08/20/2021 12:00 PM EDT documented in this encounter Results * Surgical Pathology Report (08/20/2021 12:00 PM EDT) Final Diagnosis [id number] ? Location: [facility] The signing pathologist has (i) examined the relevant preparation(s) for the specimen(s) and (ii) rendered or confirmed the diagnosis(es). . ?Surgical Pathology DIAGNOSIS A - Gastric antrum mucosal bx: - ??Antrum-type mucosa with mild chronic gastritis ?? (see Note). Note: ??Immunostaining for H. pylori is negative. B - GE junction mucosal bx: - ??Squamocolumnar junctional mucosa (cardia type) with mild chronic inflammation. There is no evidence of intestinal metaplasia. C - Terminal ileum mucosal bx: - ??Ileal mucosa, negative for diagnostic abnormality. D - Right colon random mucosal bx: - ??Colonic mucosa, negative for diagnostic abnormality. E - Left colon random mucosal bx: - ??Colonic mucosa, negative for diagnostic abnormality. F - Rectal colon random mucosal bx: - ??Colonic mucosa, negative for diagnostic abnormality. CR-PX Electronically signed by: ?Hernando Wilson MD Verified: ??08/25/2021 14:08 ??Pathologist Performed at: ??-[facility] Dept. of Pathology, [place], [place] ADDITIONAL STUDIES Immunohistochemistry Studies: Formalin-fixed, paraffin-embedded tissue sections are studied using the polymer technique with appropriate positive and negative controls. ?These IHC studies provide the pathologist with adjunctive diagnostic information. Antibody specificity has been verified by testing antibodies on a series of in-house tissues with known immunohistochemical performance characteristics. The clinical interpretation of any antibody positive staining or its absence is evaluated within the context of clinical presentation, morphology, histopathological criteria and other diagnostic tests. Block ? Antibody ?Result (Positive/Negative) A1 ? H. PYLORI ?See note SPECIMEN(S) SUBMITTED A - Gastric antrum mucosal bx B - GE junction mucosal bx C - Terminal ileum mucosal bx D - Right colon random mucosal bx E - Left colon random mucosal bx F - Rectal colon random mucosal bx . SPECIMEN(S) SUBMITTED Referring Identifier: ??[id number] CLINICAL INFORMATION Normal SPECIMEN PROCESSING A - Labeled/Fixative: Gastric antrum mucosal biopsy, formalin. Quantity/Size: Two, 0.1 and 0.4 cm. Tissue Description: Soft, roy-pink tissues. Sections/Processing: Submitted en toto ??in 1 cassette labeled A1. B - Labeled/Fixative: GE junction mucosal biopsy, formalin. Quantity/Size: Two, 0.3 and 0.4 cm. Tissue Description: Soft, pink tissues. Sections/Processing: Submitted en toto ??in 1 cassette labeled B1. C - Labeled/Fixative: Terminal ileum mucosa biopsy, formalin. Quantity/Size: Two, 0.2 and 0.4 cm. Tissue Description: Soft, pink tissues. Sections/Processing: Submitted en toto ??in 1 cassette labeled C1. D - Labeled/Fixative: Right colon random mucosal BX, formalin. Quantity/Size: Four, ranging from 0.2-0.5 cm. Tissue Description: Soft, roy tissues. Sections/Processing: Submitted en toto ??in 1 cassette labeled D1. E - Labeled/Fixative: Left colon random mucosal BX, formalin. Quantity/Size: Five, ranging 0.1-0.4 cm. Tissue Description: Soft, pink tissues. Sections/Processing: Submitted en toto ??in 1 cassette labeled 1. F - Labeled/Fixative: Rectal colon random mucosal BX, formalin. Quantity/Size: Two, 0.2 and 0.5 cm. Tissue Description: Soft, pink tissues. Sections/Processing: Submitted en toto ??in 1 cassette labeled F1. ??sns 08/25/2021 2:08 PM EDT [facility] GI Biopsy 08/20/2021 12:0 0 PM EDT 08/20/2021 12:00 PM EDT GI Biopsy 08/20/2021 12:0 0 PM EDT 08/20/2021 12:00 PM EDT GI Biopsy 08/20/2021 12:0 0 PM EDT 08/20/2021 12:00 PM EDT GI Biopsy 08/20/2021 12:0 0 PM EDT 08/20/2021 12:00 PM EDT GI Biopsy 08/20/2021 12:0 0 PM EDT 08/20/2021 12:00 PM EDT GI Biopsy 08/20/2021 12:0 0 PM EDT 08/20/2021 12:00 PM EDT Nancy Mason MD PATHOLOGY/CYTOLOGY O RDERABLES [facility] [place] [place] [address] documented in this encounter Visit Diagnoses Not on filedocumented in this encounter Care Teams Engineering Technical Analyst Relationship Specialty Start Date End Date Shena Morrow APRN [address] [place] [address] PCP - General Family Medicine 08/20/21 documented as of this encounter
--- OUTSIDE RECORDS SUMMARY | 2024-03-08 15:06 | XMS_ITS | Encounter Summary ---
Author Organization [facility] Address [address] [place] [address] Care Team Providers Care Floral Department Specialist Name Role Phone Unknown, Provider Primary Care Provider Unazachary ilable Encounter Details Date Type Department Care Team (Late st Contact Info) Description 05/21/2022 Lab Requisition [facility] Pathology & Laboratory Medicine - [address] [address] Outr Resulting Lab, Provider Social History Tobacco [...] Comments CHLAMYDIA/N. GONORRHOEAE AMPLIFIED NUCLEIC ACID Routine 05/21/2022 13:39 EST documented in this encounter Results * CHLAMYDIA/N. GONORRHOEAE AMPLIFIED RNA (05/21/2022 13:39 EST) Neisseria gonorrhoeae Result Negative Negative 05/22/2022 12:41 EST [facility] Chlamydia trachomatis Result Negative Negative 05/22/2022 12:41 EST [facility] Swab ENTIRE VAGINA / Unknown 05/21/2022 13:39 EST 05/21/2022 23:02 EST us Provider Outr Resulting Lab MICROBIOLOGY - GENER AL ORDERABLES Final Result [facility] [address] [place] [address] documented in this encounter Visit Diagnoses Not on filedocumented in this encounter Care Teams Floral Department Specialist Relationship Specialty Start Date End Date Unknown, Provider, PCP - General 11/18/17 documented as of this encounter
--- OUTSIDE RECORDS SUMMARY | 2024-03-08 15:06 | XMS_ITS | Encounter Summary ---
Author Organization [facility] [place] [address] Care Team Providers Care Fish Salter Name Role Phone Shena Morrow APRN Primary Care Provider +1- [phone] Encounter Details Date Type Department Care Team (Late st Contact Info) Description 10/01/2021 Telephone [place] [phone] Renae Estrada CMA GASTROENTEROLOGY DEPT Social History Tobacco Use Types Packs/Day Years Used Date Smoking Tobacco: Never Assessed Sex and Gender Information Value Date Recorded Sex Assigned at Not on file Gender Identity Not on file Sexual Orientation Not on file documented as of this encounter Miscellaneous Notes * Telephone Encounter - Renae Estrada CMA - 10/01/2021 7:47 AM EDT Called patient to review medications and allergies for their upcoming gastroenterology Type of Appointment: Telehealth appointment. Reach Patient during MA Check: No, Did not leave a message Notes for the provider: Notes for the nurse: documented in this encounter Plan of Treatment Not on file documented as of this encounter Visit Diagnoses Not on filedocumented in this encounter Care Teams Fish Salter Relationship Specialty Start Date End Date Shena Morrow APRN [address] [place] [address] PCP - General Family Medicine 08/20/21 documented as of this encounter
--- OUTSIDE RECORDS SUMMARY | 2024-03-08 15:06 | XMS_ITS | Encounter Summary ---
Author Organization [facility] Address [address] [place] [address] Care Team Providers Care Crushing Machine Operator Name Role Phone Unknown, Provider Primary Care Provider Unava ilable Encounter Details Date Type Department Care Team (Late st Contact Info) Description 10/10/2019 Lab Requisition [facility] Pathology & Laboratory Medicine - [address] [address] Outr Resulting Lab, Provider Social History Tobacco [...] Comments CHLAMYDIA/N. GONORRHOEAE AMPLIFIED NUCLEIC ACID Routine 10/10/2019 16:02 EDT documented in this encounter Results * CHLAMYDIA/N. GONORRHOEAE AMPLIFIED RNA (10/10/2019 16:02 EDT) Neisseria gonorrhoeae Result Negative Negative 10/12/2019 13:55 EDT [facility] Chlamydia trachomatis Result Negative Negative 10/12/2019 13:55 EDT [facility] Swab ENTIRE VAGINA / Unknown 10/10/2019 16:02 EDT 10/10/2019 22:08 EDT us Provider Outr Resulting Lab MICROBIOLOGY - GENER AL ORDERABLES Final Result [facility] [address] [place] [address] documented in this encounter Visit Diagnoses Not on filedocumented in this encounter Care Teams Crushing Machine Operator Relationship Specialty Start Date End Date Unknown, Provider, PCP - General 11/18/17 documented as of this encounter
--- OUTSIDE RECORDS SUMMARY | 2024-03-08 15:06 | XMS_ITS | Encounter Summary ---
Author Organization [facility] Address [address] [place] [address] Care Team Providers Care Copra Sampler Name Role Phone Unknown, Provider Primary Care Provider Unazachary ilable Encounter Details Date Type Department Care Team (Late st Contact Info) Description 11/16/2017 Results Only [facility] [phone] John Younger, MEDICATION SPECIALIST [address] [place] [address] Social History Tobacco Use Types Packs/Day Years [...] Name Priority Date/Time Associated Diagnosis Comments PAP TEST- RESULT ONLY Routine 11/16/2017 0:00 EDT documented in this encounter Results * PAP TEST- RESULT ONLY (11/16/2017 0:00 EDT) Pathology Report: CYTOPATHOLOGY REPORT Reports generated via electronic interface contain original data; however they are lacking the format of the original report. Caution should be taken when reading/interpreti ng unformatted reports. Name: ? MARIA DEL CARMEN ATKINS ? Accession #: ? [id number] ? : ? 1995 (Age: 21) ??F ?Collect Date: ? 11/16/2017 ? Location: ? [facility] ? Receive Date: ? 11/18/2017 ? Provider: JOHN YOUNGER NP Copy to: ? Final Report SPECIMEN ADEQUACY ? Satisfactory for Evaluation - transformation zone component absent GENERAL CATEGORIZATION ? Negative for Intraepithelial Lesion or Malignancy ?? Last Menstrual Period: 10/19/17 Hormonal/Contracep tive status: Oral contraceptives Specimen/Source: ??Pap Test, Cervix, ThinPrep Imaging System with manual evaluation Document reviewed and electronically signed by: ? RICH Padron(ASCP) ? Report ??Date: 12/01/2017 14:02 HPV with Pap Test ? Date Ordered: ? 12/01/2017 ? Status: ?? Signed Out ?Date Complete: ? 12/02/2017 ? By: ??System Interface ? Date Reported: ? 12/02/2017 ? Interpretation RESULT: Negative for HPV. No E6 or E7 mRNA is detected from HPV types 16,18,31,33,35, 39,45,51,52,56,58, 59,66, and 68 by sander setter mediated amplification. Comments Document reviewed and electronically signed by: ? System Interface ? Report date: 12/02/2017 By the signature above, the attending physician certifies that he/she has personally conducted a gross and/or microscopic examination of the described specimens and rendered or confirmed the above diagnosis. End of Report [facility] 11/16/2017 11/18/2017 us John Younger NP PATHOLOGY ORDERABLES Final Res ult [facility] [address] [place] [address] documented in this encounter Visit Diagnoses Not on filedocumented in this encounter Care Teams Copra Sampler Relationship Specialty Start Date End Date Unknown, Provider, PCP - General 11/18/17 documented as of this encounter
--- OUTSIDE RECORDS SUMMARY | 2024-03-08 15:06 | XMS_ITS | Encounter Summary ---
Author Organization [facility] Address [address] [place] [address] Care Team Providers Care Event Executive Name Role Phone Unknown, Provider Primary Care Provider Laya martinez Encounter Details Date Type Department Care Team (Late st Contact Info) Description 08/01/2021 Lab Requisition [facility] Pathology & Laboratory Medicine - [address] [address] Outr Resulting Lab, Provider Social [...] Procedure Name Priority Date/Time Associated Diagnosis Comments CELIAC DISEASE PANEL Routine 07/31/2021 12:30 EDT documented in this encounter Results * CELIAC DISEASE PANEL (07/31/2021 12:30 EDT) Tissue Transglutaminase Antibody IGA <1.2 <4.0 U/mL 08/04/2021 12:37 EDT [facility] Comment: A negative result may be due to IgA deficiency and does not rule out celiac disease. ? Negative: ??<4.0 U/mL ? Weak Positive: ??4.0 - 10.0 U/mL ? Positive: ??>10.0 U/mL Results were obtained with the Companion CanineA Lite R h-tTG IgA MILTON assay on the [employer]. IgA 175 85 - 499 mg/dL 08/04/2021 12:37 EDT [facility] Celiac Disease Interpretation Negative Serology. Celiac disease unlikely. Approximately 10% of patients with celiac disease are seronegative. Patients who are already adhering to a gluten-free diet may also be seronegative. If celiac disease is highly clinically suspected, referral to gastroenterology for additional evaluation is recommended. 08/04/2021 12:37 EDT [facility] Blood VENOUS BLOOD / Unknown 07/31/2021 12:30 EDT 08/01/2021 17:08 EDT us Provider Outr Resulting Lab IMMUNOLOGY AND SEROL OGY ORDERABLES Final Result [facility] [address] [place] [address] documented in this encounter Visit Diagnoses Not on filedocumented in this encounter Care Teams Event Executive Relationship Specialty Start Date End Date Unknown, Provider, PCP - General 11/18/17 documented as of this encounter
--- OUTSIDE RECORDS SUMMARY | 2024-03-08 15:06 | XMS_ITS | Clinical Summary ---
Author Organization [facility] Address [address] [place] [address] Care Team Providers Care Pot Lining Supervisor Name Role Phone Unknown, Provider Primary Care Provider Unava ilable Encounters Date Type Department Care Team Description 01/06/2024 Lab Requisition [facility] Pathology & Laboratory Medicine - [address] [address] Reyna Rodriguez CNM Encounter for screening for [...] Health Maintenance Due Date Last Done Comments Hepatitis B Vaccine (1 of 3 - 19+ 3-dose series) 12/26 COVID-19 Vaccine ( season) 2023 Hepatitis C Screen Completed 04/16/2022 Procedures Procedure Name Priority Date/Time Associated Diagnosis [...] System with Manual Evaluation 01/17/2024 15:36 EDT [facility] Specimen Adequacy Unsatisfactory for evaluation-Insuf ficient number of squamous epithelial cells. Specimen processed and examined but compromised by excess blood. 01/17/2024 15:36 EDT [facility] General Categorization Unsatisfactory 01/17/2024 15:36 [facility] Educational Comments An additional slide was prepared and evaluated. Unsatisfactory - Specimen processed and examined, but unsatisfactory for evaluation of epithelial abnormality. Recommend repeat age-based screening after 2-4 months per ASCCP Guidelines which may be found at www.asccp.org. HPV testing will not be performed due to the potential for false negative results. 01/17/2024 15:36 T [facility] Attestation . 01/17/2024 15:36 [facility] at 1536 Clinical History See below 01/17/20 15:36 [facility] Performing Lab [facility] 01/17/2024 15:36 [facility] Scanned Images 01/17/2024 15:36 [facility] Pap Test CERVIX UTERI STRUCTURE / Unknown 01/06/2024 14:20 EDT 01/07/2024 12:33 EDT us Reyna Rodriguez [facility] PATHOLOGY ORDERABLES Fin al Result [facility] [address] [place] [id number] * HEPATITIS C AB W REFLEX TO HCV RNA BY PCR (04/16/2022 8:45 EST) Hep C Antibody Negative Negative 04/17/2022 10:06 EST [facility] Blood VENOUS BLOOD / Unknown 04/16/2022 8:45 EST 04/16/2022 21:29 EST us Provider Outr Resulting Lab CHEMISTRY & BLOOD GA S ORDERABLES Final Result [facility] [address] [place] [address] from Last 3 Months or Most Recently Relevant to Health Maintenance Care Teams Pot Lining Supervisor Relationship Specialty Start Date End Date Unknown, Provider, PCP - General 11/18/17
[2024-03-08 19:11] LABS: HCT 43.2 % (36.0-46.0); HGB 13.8 g/dL (11.2-15.7); MCH 29.4 pg (27.0-33.0); MCHC 31.9 % (32.0-36.0); MCV 92 fL (80-95); MPV 11.9 fL (8.0-11.0); Platelet Count 252 10^3/uL (130-400); RDW 13.4 % (11.7-14.6); RDW-SD 45.7 fL; WBC 5.79 10^3/uL (4.4-10.8)
[2024-03-08 19:31] LABS: ALT 33 U/L (14-59); AST 21 U/L (15-37); Albumin 3.9 g/dL (3.4-5.0); Alkaline Phosphatase 121 U/L (46-116); Anion Gap 8.2 mmol/L (3-11); BUN 11 mg/dL (7-18); CO2 26.8 mmol/L (21.0-32.0); CREATININE 0.7 mg/dL (0.55-1.02); Calcium 8.9 mg/dL (8.5-10.1); Chloride 107 mmol/L (98-107); Estimated GFR 121.49 (mL/min/1.73m2); Glucose 88 mg/dL (74-106); Potassium 4.3 mmol/L (3.5-5.1); Sodium 142 mmol/L (136-145); Total Protein 7.9 g/dL (6.4-8.2)
[2024-03-08 19:36] LABS: C-Reactive Protein < 0.50 mg/dL (<or=0.5)
== END 2024-03-08 15:04 | disposition home or self-care (01) ==
LOC: NCHCN 15:03
PROVIDERS: PCP Nurse Practitioner Family; Visit Provider Internal Medicine
DX: K62.5 Hemorrhage of anus and rectum (principal)
CPT/HCPCS: 80053; 85027; 86140

== ENCOUNTER 2024-03-14 18:40 | Outpatient (REF) | payer MEDICAID, SELFPAY | END 2024-03-14 18:41 | disposition home or self-care (01) | LOC: LBN 18:40 | PROVIDERS: PCP Nurse Practitioner Family; Visit Provider Nurse Practitioner Family | DX: J02.9 Acute pharyngitis, unspecified (principal) | CPT/HCPCS: 87070 ==

== ENCOUNTER 2024-04-11 01:12 | Outpatient (CLI) | payer MEDICAID, SELFPAY ==
--- NOTE | 2024-04-11 | DI.US_ITS ---
Exam(s) US ABDOMEN LIMITED EXAM: US ABDOMEN LIMITED CLINICAL HISTORY: RUQ PAIN R10.11 CHECK FOR BILIARY DISEASE, MILDLY ELEVATED ALK PHOS TECHNIQUE: Ultrasound abdomen performed using standard protocol. COMPARISON: US US ABDOMEN from 01/15/2023 FINDINGS: There is no ascites evident. LIVER: There are no hepatic lesions evident nor dilatation of intrahepatic ducts. GALLBLADDER/BILIARY: There are no gallstones. No gallbladder wall edema nor pericholecystic fluid. The common hepatic duct isnot dilated, measuring 3-4mm at the level of santiago hepatis. PANCREAS: There is no evidence of pancreatic mass nor dilatation of the pancreatic duct. RIGHT KIDNEY:No evidence of solid mass, calculus, nor hydronephrosis. No cortical cysts evident. IMPRESSION: 1. No evidence of cholelithiasis nor dilatation of the biliary tree. 2. No other significant ultrasound findings in the right upper quadrant. 3. There is no ascites. No significant change compared to prior ultrasound examination of January 2023. DATA REPOSITORY:
== END 2024-04-11 01:32 ==
LOC: DI 01:12
PROVIDERS: PCP Nurse Practitioner Family; Visit Provider Internal Medicine
DX: R10.11 Right upper quadrant pain (principal)
CPT/HCPCS: 76705

== ENCOUNTER 2024-04-20 05:04 | Outpatient (CLI) | payer MEDICAID, SELFPAY ==
[2024-04-20 17:18] LABS: Ferritin 49 ng/mL (8-252); TSH (W/Ref FT4) 1.29 uIU/mL (0.36-3.74)
[2024-04-20 17:38] LABS: C-Reactive Protein < 0.50 mg/dL (<or=0.5)
[2024-04-24 12:02] LABS: ANA Interpretation Negative (Negative)
== END 2024-04-20 05:05 | disposition home or self-care (01) ==
PROVIDERS: Surgery; PCP Nurse Practitioner Family; Visit Provider Internal Medicine
DX: R11.0 Nausea (principal); K21.9 Gastro-esophageal reflux disease without esophagitis; K62.5 Hemorrhage of anus and rectum; K52.9 Noninfective gastroenteritis and colitis, unspecified; R10.13 Epigastric pain; K58.9 Irritable bowel syndrome, unspecified; Z83.79 Family history of other diseases of the digestive system; Z13.88 Encounter for screening for disorder due to exposure to contaminants
CPT/HCPCS: 36415; 82728; 83655; 84443; 86038; 86140

== ENCOUNTER 2024-05-09 08:31 | Day surgery (SDC) | payer MEDICAID, SELFPAY ==
[2024-05-09 08:41] VITALS: BP 115/82; PULSE 80; RESP 16; TEMP 36.3; O2SAT 98
[2024-05-09] MEDS: Na Phosphate Enema-Adult 133 ML BTL PR (08:50)
[2024-05-09] MEDS: Lactated Ringers 1,000 ML 80 ML IV (09:25)
--- NOTE | 2024-05-09 09:40 | ANES.PREOP_ITS ---
General Info Date of Service Date Performed: 05/09/24 Height: 5 ft 5 in Weight: 71.5 kg Body Mass Index (BMI): 26.2 Surgical Procedure: Operation Date: 05/09/24 09:10 Proposed Procedure Side Surgeon p Flexible Sigmoidoscopy Gayatri Tarango, DO Meds Allergies and Home Medications Allergies Allergy/AdvReac Type Severity Reaction Status Date / Time No Known Allergies Allergy Verified 05/09/24 09:09 Home Medication ?Medication ?Instructions ?Recorded triamcinolone acetonide 0.1 % applic topical 05/09/24 topical cream Current Visit Medications: Current Medications Generic Name Dose Route Start Last Admin Trade Name Freq PRN Reason Stop Dose Admin Hyoscyamine Sulfate 0.125 mg 05/09/24 09:34 Hyoscyamine 0.125 Mg Sl/Oral/Chew SL 06/08/24 09:33 DIRECTED PRN Ringer's Solution 1,000 mls @ 80 mls/hr 05/09/24 08:00 05/09/24 09:25 IV 06/08/24 07:59 80 mls/hr INFUSION MOJGAN Administration IV Miscellaneous Supplies 1 each 05/09/24 06:00 Iv Access IV 05/09/24 23:59 DIRECTED MOJGAN Ondansetron HCl 4 mg 05/09/24 09:34 Ondansetron 4 Mg/2 Ml Vial IVP 06/08/24 09:33 Q4H PRN PRN Nausea / Vomiting Sodium Biphosphate/Sodium Phosphate 133 ml 05/09/24 06:00 Na Phosphate Enema-Adult 133 Ml Btl MT 05/09/24 23:59 DIRECTED MOJGAN Sodium Chloride 0 ml 05/09/24 06:00 Normal Saline Flush 10 Ml Syr IV 05/09/24 23:59 PRN PRN Sodium Chloride 0 ml 05/09/24 06:00 Normal Saline 10 Ml Vial IJ 05/09/24 23:59 DIRECTED PRN Sterile Water 0 ml 05/09/24 06:00 Water,Injection,Sterile 10 Ml Vial IJ 05/09/24 23:59 DIRECTED PRN PFSH Active Problems Active Problems: Problem Status Onset Code IBS (irritable bowel syndrome) Chronic K58.9 Nausea Acute R11.0 Chronic diarrhea Acute K52.9 Epigastric pain Acute R10.13 GERD (gastroesophageal reflux disease) Chronic K21.9 Painless rectal bleeding Acute K62.5 Heavy menstrual bleeding Acute N92.0 Pelvic pain Acute R10.2 Anxiety Chronic F41.9 Depression Chronic F32.A Medical History Medical History (Updated 04/13/24 @ 15:06 by Gayatri Tarango DO) Family history of Crohn's disease Endometriosis Inflammatory bowel disease Hypertension affecting Anemia Medical History Comments:: PT reports hx of pre-eclampsia with 2 pregnancies. Tobacco Smoking/Tobacco Use Status: Never Alcohol Alcohol Intake: current Alcohol intake frequency: a few times a month Alcohol type: beer Substance Use Substance use: Never Prental History History 2 1 Para 1 Hx # Term Pregnancies Multiple births Hx # Pregnancies Ectopic pregnancies AB induced Hx Number of Living Children AB spontaneous Past Pregnancies Del. Date GA/Weeks # Preg Succ Route Wgt Sex Labor Lgth Anesth esia Location [facility] 08/29/19 40 No Yes vaginal 3401.943 g Male Delivery Date: 08/29/19 Last Updated by: Olivia Seth pt reports pre- eclampsia- Rob[place], born in [place], [place] Vital Signs and Lab Results Vital Signs Most Recent Vital Signs in EMR: Most Recent Vital Signs Temp Pulse Resp BP Pulse Ox 36.3 C L 80 16 115/82 98 05/09/24 08:41 05/09/24 08:41 05/09/24 08:41 05/09/24 08:41 05/09/24 08:41 Lab Results Blood Type / Crossmatch: 2 No Data to Display Complete Blood Count: 2 No Data to Display Complete Metabolic Panel: 2 C-Reactive Protein < 0.50 mg/dL (<or=0.5) 04/20/24 15:58 Liver Function Panel: 2 No Data to Display Coagulation Panel: 2 No Data to Display Cardiac Panel: 2 No Data to Display Arterial Blood Gas: 2 No Data to Display Venous Blood Gas: 2 No Data to Display Pancreas Panel: 2 No Data to Display Thyroid Panel: 2 Thyroid Stimulating Hormone (TSH) 1.29 uIU/mL (0.36-3.74) 04/20 15:58 Infectious Disease: 2 No Data to Display Blood Cultures: 2 No Data to Display Toxicology Panel: 2 No Data to Display Panel: 2 No Data to Display Anesthesia Assessment and Plan Anesthesia History Personal History: PONV Family History: No Family History of Anesthesia Complications Exercise Tolerance Exercise Tolerance: Metabolic Equivalents>4 Pertinent Negatives Pertinent Negatives: No Symptoms of GERD (controlled), No Major Cardiovascular Symptoms or Complaints, No Major Pulmonary Symptoms or Complaints and No History of CVA/TIA Cardiac & Pulmonary Exam Cardiac Exam: Normal S1/S2 Heart Sounds Pulmonary Exam: Clear Bilateral Breath Sounds Implantable Cardiac Device Does patient have a Pacemaker or an ICD?: No Airway Exam Known Difficult Airway: No Mallampati Class: 2 Mouth Opening: Normal (> 3cm) Thyromental Distance: Greater than 3 cm Neck Range of Motion: Full ROM Neck Circumference: Normal Teeth Condition: Normal Dentition Tooth Numberin 1. Missing ASA Classification ASA Score: ASA 2 Emergency Case?: No NPO Status NPO Status: NPO Clears >2 hours, Solids >8 hours Status Status: Negative HCG Anesthesia Plan Resuscitation Status: Full Code Anesthesia Technique: General Anesthesia Airway Planned: Natural Airway Monitors Used: Standard Monitors Preoperative Comments:: Discussed PONV: Zofran prior to induction.
[2024-05-09 09:44] VITALS: BMI 26.2
--- NOTE | 2024-05-09 09:55 | BOWEL_PTH ---
PATIENT: Elizabeth Andres LOC: [facility] U#:[id number] AGE/SX: 28/F ROOM: RE05/09/[address]: Gayatri Tarango : 1995 BED: DIS: 05/09/2024 SPEC #: [id number] RECD: 05/09/24 12:24 STATUS: JAISON REQ #: [id number] LUIS: 05/09/24 09:[address]: Gayatri Tarango DEPT: Surgical Specimen RECD BY: Chantale Bustamante ENTERED: 05/09/24 12:26 SP TYPE: Bowel OTHR DR: Nathaly Morrow Tissues: 1 - BIOPSY BOWEL 2 - BIOPSY BOWEL 3 - BIOPSY BOWEL 4 - BIOPSY BOWEL Procedures: GROSS AND MICRO LEVEL 4 Comments: [id number]
[2024-05-09 10:09] VITALS: BP 106/87; PULSE 76; RESP 14; TEMP 36.7; O2SAT 97
--- NOTE | 2024-05-09 10:31 | COLE_ITS ---
Date of service: 05/09/24 Time of Service: 10:31 Colonoscopy Report Date of procedure: 05/09/24 Pre-op diagnosis general: Rectal bleeding Post-op diagnosis procedure note: other (Anal fissure) Procedure: sigmoidoscopy Surgeon: Gayatri Tarango Anesthesia Type: General:No Airway Estimated blood loss (mL): 1 Pathology: other Complications: None Disposition: same day Prep: Other (Enemas) Retraction Time: N/A Procedure Description: After informed consent was obtained, explaining risks of the procedure, including but not limits to: bleeding, infections, complications of anesthesia, perforations (which may require antibiotics and /or surgery and stay in the hospital), and abdominal pain/cramping. The patient was taken to the procedure room and placed in a left decubitous position. Monitors were applied and a time out was done. The patients name, date of , procedure, allergies to medications and metal in their body was reviewed. The patient was then sedated. Once sedated and comfortable a rectal exam was done. External exam in the left lateral position. Internal exam reveals a fissure in the left lateral position. It is 80% healed. There is no signs of infection. It is maybe 2 mm in size. The previously lubricated Olympus scope was then introduced (see RN notes for scope number) and retrofelexed. No internal hemorrhoids. There are some hemorrhoidal tags. The scope was then advanced to the right flexure without difficulty. No polyps or diverticula are noted. Biopsies are taken at: 70/40/20cm and rectum. With a cold biopsy forcep. All specimens are retrieved and no bleeding is noted. The mucosa is pink and healthy w/ a normal vascular pattern. The scope was removed, and the patient was woken up and taken back to Same day surgery in stable condition. The patient tolerated the procedure well and there were no immediate complications. Follow up: The patient should have a full colonoscopy at age 46 unless they develop changes in bowel habits or other new gastrointestinal complaints. [place] Bowel Prep [place] Bowel Prep Right Colon: 0 Left Colon: 3 Transverse Colon: 0 Total Score: 3
--- NOTE | 2024-05-09 10:34 | PDOC.DSDIS_ITS ---
Date of service: 05/09/24 Discharge Plan Disposition Patient Disposition: Home Condition: Good Discharge Details Reason For Visit: Sigmoidoscopy Attending Provider: Gayatri Tarango Primary Care Provider: Shena Morrow Home Meds and New Rx's Prescriptions: New nitroglycerin 0.4 % (w/w) ointment 1 inch MA BID 21 Days Qty: 30 6RF psyllium husk [Fiber (psyllium husk)] 0.4 gram capsule 0.4 g PO BID Qty: 60 12RF Discontinued triamcinolone acetonide 0.1 % cream TOPICAL Patient Comments: APPLY A THIN LAYER TO AFFECTED AREA(S) TOPICALLY TWO TIMES A DAY Discharge Instructions Additional Instructions: DSU Colonoscopy Post- Op Instructions Instructions for Everyone who is given Anesthesia: For your safety, please do the following for the next twenty-four (24) hours: *Do Not operate a motor vehicle (car, truck, motorcycle, etc.) *Do Not drink alcoholic beverages or use any recreational drugs for the first 24 hours or while taking pain medications. The medications in your body may have a reaction that can be dangerous. *Do Not make any important decisions or sign any important papers. Findings: Anal fissure Follow up: 4 to 6 weeks time Treatment: Make sure you are moving your bowels regularly and not straining. -Start a fiber product daily. I did put in a prescription for psyllium capsules. Most likely your insurance will not pay for these and they are generally considered an tgoy-bcm-[id number] medication. Start with 2 a day. Make sure you are moving your bowels regularly and not straining. You can take up to 8 caps a day. -I will place prescription for nitro ointment. Use this medication twice a day for 3 weeks. Make sure you wash your hands well after applying. This medicatio n can cause headaches. 1. No lifting over 20 pounds or strenuous activity for the first 24 hours after your procedure. After 24 hours there are no restrictions on your activity but you may feel fatigued for a few days. 2. After you arrive home you may have a light meal and return to your normal diet as you can tolerate it without feeling sick to your stomach. 3. You may have a bloated, gaseous feeling in your belly (abdomen) after a colonoscopy. Passing gas and belching will help. Walking or lying down on your left side with your knees flexed may relieve the discomfort. Call the office at [phone] (Office) or [phone] (Hospital) right away if you notice any of the following: a.Vomiting of blood or ?coffee ground stools?. b.Rectal bleeding 1Tbsp, blood clots or continuous bleeding. c.Severe belly (abdominal) pain. d.A hard distended belly (abdomen) and an inability to pass gas. 4. Please don?t expect to have a normal BM (bowel movement) for 2-3 days after your procedure. 5. If there are questions regarding the findings of your procedure, please contact your doctor 6. If you are unable to contact your doctor with a problem, contact the hospital at [phone]. 7. Continue all your regular medications unless directed otherwise. I understand the above instructions and have no questions. Signature of Patient or Adult Escort Name of Responsible Adult Escort Signature of Nurse Date/Time Stand Alone Forms: Anesthesia Discharge Inst., Darcy Rushing (DSGiselle) Activity:: See above Diet:: See above Discharge Orders Discharge Orders: Discharge Order (Routine); Ordered 01/28/25 Ordered By: Gayatri M Stoiber DS: Diagnosis Discharge Diagnosis (1) Chronic anal fissure: Status: Acute
[2024-05-09 10:47] VITALS: BP 120/97; PULSE 72; RESP 18; TEMP 36.5; O2SAT 100
--- NOTE | 2024-05-09 12:43 | W.ANESPOSTOP ---
Postoperative Evaluation Date, Time and Location Date Performed: 05/09/24 Time Performed: 10:12 Patient Location: Day Surgery Unit Vital Signs Most Recent Imported Vital Signs: Most Recent Vital Signs Temp Pulse Resp BP Pulse Ox 36.5 C 72 18 120/97 H 100 05/09/24 10:47 05/09/24 10:47 05/09/24 10:47 05/09/24 10:47 05/09/24 10:47 Pain Score Most Recent Pain Score: Most Recent Pain Score Pain Level 0 05/09/24 10:47 Assessment Mental Status: Awake (Alert & Oriented to Patient Baseline) Airway and Respiratory Function: Patent airway with normal (patient baseline) respiratory exam Cardiovascular Function: Hemodynamically Stable Hydration Status: Adequately Hydrated Nausea & Vomiting: No Nausea or Vomiting Pain: Pt. Denies Any Pain Peripheral Nerve Block: Patient did not receive a nerve block
== END 2024-05-09 11:11 | disposition home or self-care (01) ==
PROVIDERS: PCP Nurse Practitioner Family; Visit Provider Surgery
PROC: 0DJD8ZZ Inspection of Lower Intestinal Tract, Via Natural or Artificial Opening Endoscopic (ICD-10-PCS; CPT 45330; principal; 2024-05-09 09:00)
DX: K60.1 Chronic anal fissure (principal); K62.5 Hemorrhage of anus and rectum; K62.89 Other specified diseases of anus and rectum; K63.89 Other specified diseases of intestine
CPT/HCPCS: 45331; 81025; 88305; J2405; J2704

== ENCOUNTER 2024-06-18 15:16 | Emergency (ER) | payer MEDICAID, SELFPAY ==
[2024-06-18] VITALS (28 sets, daily range): BP systolic 100–158; BP diastolic 60–94; PULSE 69–122; RESP 7–39; TEMP 36.8–37.1; O2SAT 93–100
--- NOTE | 2024-06-18 15:15 | DI.CT_ITS ---
Exam(s) CT ABDOMEN PELVIS W EXAM: CT ABDOMEN PELVIS W zzz CLINICAL HISTORY: RLQ pain, ?appy, radiates into RUQ. TECHNIQUE: Imaging Protocol: Axial computed tomography images with coronal and sagittal reformatted images were created and reviewed CONTRAST MATERIAL: Intravenous: Omnipaque-350 100cc Oral: None COMPARISON: No exams were available for comparison FINDINGS: VISUALIZED LUNG BASES: No nodules nor pleural effusions evident. ABDOMEN: There is no ascites. LIVER: There are no discrete focal hepatic lesions. No dilated intrahepatic ducts. GALLBLADDER/BILIARY: No obvious gallbladder pathology. CBD is not dilated. PANCREAS: No evidence of pancreatic mass nor dilatation of the pancreatic duct. SPLEEN: Spleen is not enlarged. No obvious intrasplenic lesions. Splenic and portal veins are paten t. ADRENALS: There are no significant adrenal masses. KIDNEYS:No cysts evident. No solid renal masses. There is a tiny punctate 1 mm calculus in the upper pole calyx of the left kidney, nonobstructive. No calculi in the right kidney. There is no hydrone phrosis nor hydroureter on either side. Urinary bladder is collapsed. ABDOMINAL AORTA: Abdominal aorta is not enlarged. LYMPH NODES:There is no retroperitoneal nor paraaortic adenopathy. ABDOMINAL WALL: Small fat only containing anterior abdominal wall umbilical hernia. No inguinal vadim ias. GI: Mobile cecum. Appendix not able to be visualized. There is no evidence of obvious acute appendi citis PELVIS: GI: No significant sigmoid diverticular disease. LYMPH NODES: There is no intrapelvic nor inguinal adenopathy. REPRODUCTIVE: Anteverted uterus and adnexal regions appear unremarkable. There is no free fluid in t he pelvis. URINARY BLADDER: Collapsed. OSSEOUS: Schmorl's node invagination in to the anterior aspect of the superior endplate of L5 is noted, age in determinate. No fractures and no significant osseous lesions. Sacroiliac joints appear un remarkable. IMPRESSION: 1. There is a tiny solitary punctate nonobstructive calculus in the upper pole the left kidney. No o ther renal findings. No hydronephrosis nor hydroureter. 2. There is a mobile cecum. The appendix is not able to be identified as an independent structure. There is no evidence of obvious appendicitis. 3. No obvious acute gallbladder pathology nor dilatation of the biliary tree RADIATION DOSE DELIVERED: 423.99mGy.cm Total DLP DATA REPOSITORY: All CT scans at this facility are submitted to the National Radiology Data Registry (NRDR) Dose Index Registry (DIR) with the [employer] (A[employer]). RADIATION OPTIMIZATION: All CT scans at this facility use at least one of these dose optimization te chniques: automated exposure control; mA and/or kV adjustment per patient size (includes targeted exa ms where dose is matched to clinical indication); or iterative reconstruction.
[2024-06-18] MEDS: Normal Saline - Diluent 50 ML VIAL IJ (15:33)
[2024-06-18] MEDS: Omnipaque 350 MG/ML 100 ML BTL IJ (15:33)
[2024-06-18 15:42] LABS: Abs Immature Grans 0.02 10^3/uL (0.0-0.06); Absolute Basophil Count 0.06 10^3/uL (0.0-0.2); Absolute Eosinophil Count 0.44 10^3/uL (0.0-0.7); Absolute Lymphocyte Count 1.66 10^3/uL (1.2-3.4); Absolute Monocyte Count 0.47 10^3/uL (0.1-0.8); Absolute Neutrophil Count 4.46 10^3/uL (1.2-6.7); Basophils % 0.8 %; Eosinophils % 6.2 %; HCT 42.2 % (36.0-46.0); HGB 13.8 g/dL (11.2-15.7); Immature Grans % 0.3 %; Lymphocytes % 23.3 %; MCH 29.6 pg (27.0-33.0); MCHC 32.7 % (32.0-36.0); MCV 90 fL (80-95); Monocytes % 6.6 %; Neutrophils % 62.8 %; Platelet Count 218 10^3/uL (130-400); RBC 4.67 10^6/uL (3.93-5.22); RDW 12.5 % (11.7-14.6); RDW-SD 41.9 fL; WBC 7.11 10^3/uL (4.4-10.8)
[2024-06-18] MEDS: HYDROmorphone 2 MG/ML SYR 0.5 MG IVP (15:43)
[2024-06-18] MEDS: Ondansetron 4 MG/2 ML VIAL IVP ×2 (15:43→16:30)
[2024-06-18] MEDS: ACETAMINOPHEN 1,000 MG/100 ML BAG 400 MG IVPB (15:43)
[2024-06-18] MEDS: Normal Saline Flush 10 ML SYR IVP ×5 (15:44→18:26)
--- NOTE | 2024-06-18 16:03 | ED.GENADUL_ITS ---
Discharge Plan Disposition Patient Disposition: Home Discharge Details Clinical Impression: Abdominal pain, Vomiting Primary Care Provider: Shena Morrow ED Provider: Frederic Wade Home Meds and New Rx's Prescriptions: New ondansetron 4 mg tablet,disintegrating 4 mg PO Q6H PRN (Reason: nausea and vomiting) Qty: 30 0RF No Action nitroglycerin 0.4 % (w/w) ointment 1 inch NC BID 21 Days Qty: 30 6RF psyllium husk [Fiber (psyllium husk)] 0.4 gram capsule 0.4 g PO BID Qty: 60 12RF bupropion HCl 300 mg tablet extended release 24 hr 300 mg PO DAILY Patient Comments: TAKE ONE TABLET BY MOUTH EVERY DAY Discharge Instructions Additional Instructions: Your lab work and CT imaging this evening did not reveal an acute cause of your significant abdominal pain. You were given multiple doses of pain medication and antinausea medication You are being sent home with some antinausea medication as well as prescriptions will be sent to the pharmacy Please return if you are unable to keep anything down or you have severe pain Discharge Data Discharge Date/Time-TO BE ENTERED AT DEPARTURE: 06/18/24 21:50 HPI General Mode of arrival: ambulatory . Date/Time Provider Initiated Documentation: 06/18/24 15:17 . Limitations to Documentation: no limitations . Information obtained by: patient and old records reviewed . HPI Narrative: HPI: This is a 28-year-old female patient with a history of IBS presenting for evaluation of right lower quadrant abdominal pain. The patient reports that she was in her normal state of health until 45 minutes ago, when she had a sudden onset of sharp stabbing pain in the right lower quadrant that radiates up to her right side under her ribs. This is associated with nausea, has had some episodes of vomiting, no reported fever. She states that she has not had any dysuria, has not had a bowel movement yet today, often has chronic diarrhea due to her IBS. The patient is currently menstruating, has not had any new vaginal discharge, uses the pullout method for prevention. Has not tried any medications in the outpatient environment for management of her symptoms. Exam: Gen: Awake and alert, appears notably uncomfortable, leaning over to the left side HEENT: Non-icteric sclera Neck: Supple Lungs: No apparent respiratory distress, normal respiratory effort. CV: Appears well perfused, heart with tachycardic rate but regular rhythm, strong distal pulses Abdomen: Non-distended, soft, tender to palpation in the right lower quadrant and right upper quadrant, no rigidity, rebound, or guarding. Minimal re production of pain with heeltap. MSK: Moves 4 extremities without apparent limitation in ROM Skin: Visualized skin without rashes, cyanosis. Neuro: Normal Gait, no obvious focal deficits or facial asymmetry. Speaks in full, clear sentences. Psych: Appropriate for situation. MDM: This is a 28-year-old female patient presenting for evaluation of right lower quadrant abdominal pain. My differential includes but is not limited to appendicitis, cholecystitis, hepatitis, pancreatitis, renal stone, UTI. The patient has no symptoms to significantly increase my concern for PID/TOA, considered early and ectopic . The brief duration of symptoms reassures me against severe metabolic and electrolyte derangements, dehydration or kidney injury. We will obtain laboratory studies to include CBC, CMP, magnesium, lipase, urinalysis, [id number] screen. We will obtain a CT abdomen pelvis with contrast to better characterize any abnormalities ED Course: I independently interpreted the laboratory studies, which show no significant leukocytosis, anemia, or thrombocytopenia. The chemistry panel is without evidence of electrolyte abnormality, kidney dysfunction, or liver injury. CT scan obtained, patient did require multiple doses of medication for ongoing pain and nausea. Signed out to the oncoming provider prior to radiology results and final disposition. Joceline Perales MD Related Data Home Medications ?Medication ?Instructions ?Recorded ?Confirmed nitroglycerin 0.4 % (w/w) rectal 1 inch NC BID 3 weeks #30 grams 05/09/24 06/18/24 ointment psyllium husk 0.4 gram capsule 0.4 g PO BID #60 caps 05/09/24 06/18/24 (Fiber (psyllium husk)) bupropion HCl 300 mg 24 hr tablet, 300 mg PO DAILY 06/18/24 06/18/24 extended release ondansetron 4 mg disintegrating 4 mg PO Q6H PRN nausea and 06/18/24 tablet vomiting #30 tabs Previous Rx's ?Medication ?Instructions ?Recorded nitroglycerin 0.4 % (w/w) rectal 1 inch NC BID 3 weeks #30 grams 05/09/24 ointment psyllium husk 0.4 gram capsule 0.4 g PO BID #60 caps 05/09/24 (Fiber (psyllium husk)) ondansetron 4 mg disintegrating 4 mg PO Q6H PRN nausea and 06/18/24 tablet vomiting #30 tabs Allergies Allergy/AdvReac Type Severity Reaction Status Date / Time No Known Allergies Allergy Verified 06/18/24 15:21 General Stated Complaint: Abd Prob ANETA: 3 Course Vital Signs Vital signs: Vital Signs Temperature 37.1 C 06/18/24 15:20 Pulse 122 H 06/18/24 15:20 Respiratory Rate 18 06/18/24 15:20 Blood Pressure 100/60 06/18/24 15:20 Pulse Oximetry 97 06/18/24 15:20 Temperature 37.1 C 06/18/24 15:22 Pulse 122 H 06/18/24 15:22 Respiratory Rate 18 06/18/24 15:22 Blood Pressure 100/60 06/18/24 15:22 Pulse Oximetry 97 06/18/24 15:22 Pain Level 6 06/18/24 15:43 Lab/Test Results Lab/Test Results: Laboratory Tests Range/Units 06/18/24 15:33 WBC (4.4-10.8) 10^3/uL 7.11 RBC (3.93-5.22) 10^6/uL 4.67 Hgb (11.2-15.7) g/dL 13.8 Hct (36.0-46.0) % 42.2 MCV (80-95) fL 90 MCH (27.0-33.0) pg 29.6 MCHC (32.0-36.0) % 32.7 RDW (11.7-14.6) % 12.5 Plt Count (130-400) 10^3/uL 218 MPV (8.0-11.0) fL 11.0 Immature Gran % % 0.3 Neutrophils % % 62.8 Lymphocytes % % 23.3 Monocytes % % 6.6 Eosinophils % % 6.2 Basophils % % 0.8 Nucleated RBC % (0.0-0.3) % 0.0 Absolute Neutrophils (1.2-6.7) 10^3/uL 4.46 Absolute Lymphocytes (1.2-3.4) 10^3/uL 1.66 Absolute Monocytes (0.1-0.8) 10^3/uL 0.47 Absolute Eosinophils (0.0-0.7) 10^3/uL 0.44 Absolute Basophils (0.0-0.2) 10^3/uL 0.06 Medical Decision Making Quality:SDOH Health Related Social Needs: No Data to Display PFSH All Active Problems (Updated 06/18/24 @ 21:33 by Frederic Wade MD) Vomiting (Acute) Abdominal pain (Acute) Chronic anal fissure (Acute) IBS (irritable bowel syndrome) (Chronic) Nausea (Acute) Chronic diarrhea (Acute) Epigastric pain (Acute) GERD (gastroesophageal reflux disease) (Chronic) Painless rectal bleeding (Acute) per PCP [facility], intermittent for months Heavy menstrual bleeding (Acute) Pelvic pain (Acute) Anxiety (Chronic) Depression (Chronic) Medical History (Updated 06/18/24 @ 21:33 by Frederic Wade MD) Family history of Crohn's disease Endometriosis Inflammatory bowel disease Hypertension affecting Anemia Family History (Updated 12/09/21 @ 11:56 by Olivia Seth RN) Other Family history of clotting disorder Hyperlipidemia Hypertension Osteoporosis Stroke Thyroid disease Social History (Updated 12/09/21 @ 12:01 by Olivia Seth RN) Smoking/Tobacco Use Status: Never Smoking risk assessment performed?: Yes Alcohol Intake: current Alcohol Intake frequency: a few times a month Alcohol type: beer Drug use: Never Household members: children Housing: house current occupation: Residential Builder Do you feel safe at home: Yes Do you feel safe in your relationship?: Yes Female Reproductive History Menstrual Duration of menses: 3-5 days control method: none History History 1 Para 1 Hx # Term Pregnancies Multiple births Hx # Pregnancies Ectopic pregnancies AB induced Hx Number of Living Children AB spontaneous Past Pregnancies Del. Date GA/Weeks # Preg Succ Route Wgt Sex Labor Lgth Anesth esia Location [facility] 08/29/19 40 No Yes vaginal 3401.943 g Male Delivery Date: 08/29/19 Last Updated by: Olivia Seth pt reports pre- eclampsia- [place], born in [place], [place]
[2024-06-18 16:05] LABS: ALT 35 U/L (14-59); AST 20 U/L (15-37); Albumin 3.8 g/dL (3.4-5.0); Alkaline Phosphatase 104 U/L (46-116); Anion Gap 11.8 mmol/L (3-11); BUN 13 mg/dL (7-18); Bilirubin, Total 0.4 mg/dL (0.2-1.0); CO2 25.2 mmol/L (21.0-32.0); CREATININE 0.8 mg/dL (0.55-1.02); Calcium 9.2 mg/dL (8.5-10.1); Chloride 107 mmol/L (98-107); Glucose 104 mg/dL (74-106); Lipase 37 U/L (<78); Magnesium 1.9 mg/dL (1.8-2.4); Potassium 3.7 mmol/L (3.5-5.1); Sodium 144 mmol/L (136-145); Total Protein 7.4 g/dL (6.4-8.2)
[2024-06-18 16:20] LABS: Bilirubin Negative (Negative); Blood Large (Negative); Clarity Clear (Clear); Glucose Negative (Negative); Ketones Negative (Negative); Leukocyte Esterase Negative (Negative); Nitrite Negative (Negative); Urobilinogen 0.2 mg/dL (Up to 0.2); pH 5.5 (5-8)
--- NOTE | 2024-06-18 16:30 | DI.RAD_ITS ---
Exam(s) XR CHEST 2V PA LATERAL EXAM: XR CHEST 2V PA LATERAL CLINICAL HISTORY: Abd pain radiating to chest, SOB. TECHNIQUE: 2D digital imaging was performed. COMPARISON: No exams were available for comparison FINDINGS: 2 views: Heart size is normal. The mediastinum is not widened. Lungs are clear. No infiltrates nor pleural effusions. Thoracic scoliosis noted, convex right. IMPRESSION: No acute pulmonary findings. DATA REPOSITORY: RADIATION DOSE DELIVERED:
[2024-06-18] MEDS: HYDROmorphone 2 MG/ML SYR 1 MG IVP (16:46)
--- NOTE | 2024-06-18 17:04 | W.EDPROG ---
Date of service: 06/18/24 Time of Service: 17:04 Medical Decision Making Care assumed from off going provider, patient is a 28-year-old female presenting with acute right lower quadrant abdominal pain. Lab work has been obtained and there are no clinically significant abnormalities. There is some blood noted in the urine, likely secondary to her menses, but no signs of infection. At the time of signout, final disposition is pending CT read. Patient has required multiple doses of narcotics as well as antiemetics. CT results were reviewed with the radiologist. There is no obvious abnormality. There is no sign of acute appendicitis or enlarged ovary to indicate torsion. No signs of a renal stone. On my evaluation of the patient she is complaining of some epigastric discomfort and some mild right lower quadrant tenderness but otherwise a fairly benign abdominal exam. At this time she states that she is feeling a little better and would like to try oral liquids challenge. Patient did not do well with initial liquids challenge, and received a dose of IV droperidol. She was given IV fluids and observed in the emergency department for some additional time. After which she then was able to eat crackers. Fluids and keep everything down. At this time she is stable for discharge home. She will be discharged with a take-home bottle of Phenergan as well as Zofran. Prescription for additional doses of Zofran were sent to the pharmacy. Patient has strict return precautions and recommend clear liquid diet and advancing it slowly as tolerated given the amount of vomiting she has had this evening. If vomiting persists or she has recurrence or persistence of significant abdominal pain patient should return to the emergency department and otherwise follow-up with her PCP. Quality:SDOH Health Related Social Needs: No Data to Display Discharge Plan Disposition Patient Disposition: Home Discharge Details Clinical Impression: Abdominal pain, Vomiting Primary Care Provider: Shena Morrow ED Provider: Frederic Wade Home Meds and New Rx's Prescriptions: New ondansetron 4 mg tablet,disintegrating 4 mg PO Q6H PRN (Reason: nausea and vomiting) Qty: 30 0RF No Action nitroglycerin 0.4 % (w/w) ointment 1 inch [place] BID 21 Days Qty: 30 6RF psyllium husk [Fiber (psyllium husk)] 0.4 gram capsule 0.4 g PO BID Qty: 60 12RF bupropion HCl 300 mg tablet extended release 24 hr 300 mg PO DAILY Patient Comments: TAKE ONE TABLET BY MOUTH EVERY DAY Discharge Instructions Additional Instructions: Your lab work and CT imaging this evening did not reveal an acute cause of your significant abdominal pain. You were given multiple doses of pain medication and antinausea medication You are being sent home with some antinausea medication as well as prescriptions will be sent to the pharmacy Please return if you are unable to keep anything down or you have severe pain
[2024-06-18] MEDS: Metoclopramide 10 MG/2 ML VIAL IVP (17:08)
--- NOTE | 2024-06-18 17:48 | DI.VRAD_ITS ---
PROCEDURE INFORMATION: Exam: CT Abdomen And Pelvis With Contrast Exam date and time: 06/18/2024 3:27 PM Age: 28 years old Clinical indication: Abdominal pain; Localized; Right lower quadrant (rlq); Rlq pain, ? appy, radiates into ruq TECHNIQUE: Imaging protocol: Computed tomography of the abdomen and pelvis with contrast. COMPARISON: US ABDOMEN LIMITED 04/11/2024 11:17 AM FINDINGS: Liver: Normal. No mass. Gallbladder and biliary ducts: See Bones/joints finding. Pancreas: Normal. No ductal dilation. Spleen: Normal. No splenomegaly. Adrenal glands: Normal. No mass. Kidneys and ureters: Normal. No hydronephrosis. Stomach and bowel: No abnormal bowel distension. Moderate fecal retention pattern. Appendix: The appendix is not definitely identified. There are no secondary signs for acute appendicitis. Intraperitoneal space: Unremarkable. No free air. No significant fluid collection. Vasculature: Unremarkable. No abdominal aortic aneurysm. Lymph nodes: Unremarkable. No enlarged lymph nodes. Urinary bladder: Bladder decompressed. Reproductive: Unremarkable as visualized. Bones/joints: There is a prominent Schmorl's node at the L5 level. Gallbladder partially contracted. Soft tissues: Unremarkable. IMPRESSION: No definite acute abnormality seen to account for symptoms. Dictated and Authenticated by: Cynthia Cross MD. Orderin [facility] Car MD
[2024-06-18] MEDS: Normal Saline 1,000 ML 1000 ML IV (19:14)
[2024-06-18] MEDS: Ondansetron O.D.T. 4 MG TABEF, 3 TABS/BTL PO (21:49)
== END 2024-06-18 21:50 | disposition home or self-care (01) ==
PROVIDERS: Emergency Medicine; Emergency Provider Emergency Medicine; PCP Nurse Practitioner Family
DX: R10.31 Right lower quadrant pain (principal); R11.2 Nausea with vomiting, unspecified
CPT/HCPCS: 00123; 36415; 80053; 81025; 83690; 96361; 96374; 96375; 96376; 99285; 71046; 74177; 81003; 81015; 83735; 85025; 99284; J0131; J1171; J1790; J2405; J2765; J3490

== ENCOUNTER 2025-01-02 10:24 | Outpatient (CLI) | payer MEDICAID, SELFPAY ==
[2025-01-02 09:16] LABS: Abs Immature Grans 0.02 10^3/uL (0.0-0.06); HCT 42.0 % (36.0-46.0); HGB 13.6 g/dL (11.2-15.7); Immature Grans % 0.3 %; MCH 29.3 pg (27.0-33.0); MCHC 32.4 % (32.0-36.0); MCV 91 fL (80-95); MPV 10.1 fL (8.0-11.0); Platelet Count 270 10^3/uL (130-400); RBC 4.64 10^6/uL (3.93-5.22); RDW 12.6 % (11.7-14.6); RDW-SD 42.0 fL; WBC 6.00 10^3/uL (4.4-10.8)
[2025-01-02 12:07] LABS: ALT 83 U/L (14-59); AST 27 U/L (15-37); Albumin 3.9 g/dL (3.4-5.0); Alkaline Phosphatase 111 U/L (46-116); Anion Gap 9.0 mmol/L (3-11); BUN 19 mg/dL (7-18); Bilirubin, Total 0.5 mg/dL (0.2-1.0); CO2 27.0 mmol/L (21.0-32.0); Calcium 9.6 mg/dL (8.5-10.1); Chloride 107 mmol/L (98-107); Estimated GFR 89.30 (mL/min/1.73m2); Glucose 100 mg/dL (74-106); Potassium 4.6 mmol/L (3.5-5.1); Sodium 143 mmol/L (136-145); TSH 1.50 uIU/mL (0.36-3.74); Total Protein 7.7 g/dL (6.4-8.2)
[2025-01-02 16:07] LABS: Iron 120 ug/dL (50-170); Total Iron Binding Capacity 313 ug/dL (250-450); Transferrin Sat 38 % (15-50)
[2025-01-02 16:09] LABS: Calculated LDL 68 mg/dL (<100); Cholesterol 141 mg/dL (<200); Ferritin 62 ng/mL (8-252); HDL Cholesterol 67 mg/dL (>or=50); Triglyceride 30 mg/dL (<150); Vitamin B12 1215 pg/mL (193-986); Vitamin D 25 Total 27 ng/mL (30-100)
[2025-01-02 16:19] LABS: Folate > 20.0 ng/mL (8.6-20.0)
== END 2025-01-02 10:25 | disposition home or self-care (01) ==
LOC: LBO 10:24
PROVIDERS: PCP Nurse Practitioner Family; Visit Provider Nurse Practitioner Psychiatric/Mental Health
DX: E63.9 Nutritional deficiency, unspecified (principal); F32.A Depression, unspecified
CPT/HCPCS: 80053; 80061; 82306; 82607; 82728; 82746; 83540; 83550; 84443; 85025

== ENCOUNTER 2025-01-02 19:52 | Emergency (ER) | payer MEDICAID, SELFPAY ==
[2025-01-02 19:58] VITALS: BP 165/89; PULSE 120; RESP 24; TEMP 36.9; O2SAT 99
--- NOTE | 2025-01-02 20:00 | RT.EKG_ITS ---
APPROVED REPORT Exam: Resting ECG Reason for Exam: anxious, heart rate Patient Location: E HR:115 bpm ECG Measurements Heart Rate 115 AXIS AK 176 P 84 QRSd 92 QRS 98 QT 311 T -70 QTc 430 Conclusion Sinus tachycardia, rate 115 T wave inversion II, III, aVF, no priors, likely rate related No STEMI No interval abnormalities
[2025-01-02] MEDS: diazePAM 10 MG/2 ML SYR 5 MG IVP (21:05)
--- NOTE | 2025-01-02 21:08 | ED.GENADUL_ITS ---
Discharge Plan Disposition Patient Disposition: Home Condition: Stable Discharge Details Clinical Impression: Adverse effects of medication, Anxiety Primary Care Provider: Shena Morrow ED Provider: Joceline Perales Home Meds and New Rx's Prescriptions: No Action triamcinolone acetonide 0.1 % cream TOPICAL Patient Comments: APPLY A THIN LAYER TO AFFECTED AREA(S) TOPICALLY TWO TIMES A DAY dextroamphetamine-amphetamine 20 mg capsule,extended release 24hr PO Patient Comments: TAKE ONE CAPSULE BY MOUTH EVERY DAY bupropion HCl 150 mg tablet extended release 24 hr PO Patient Comments: TAKE ONE TABLET BY MOUTH EVERY DAY WITH 300MG bupropion HCl 300 mg tablet extended release 24 hr 300 mg PO DAILY Patient Comments: TAKE ONE TABLET BY MOUTH EVERY DAY Discharge Instructions Instructions: Anxiety, Adult ED Additional Instructions: You were seen in the emergency department today for evaluation of racing heart a nd thoughts, likely due to the recent initiation of Adderall along with your Wellbutrin. In our department a full physical examination performed which did not show any sign of serotonin syndrome at this time. You were given medications to help calm your body down, and have been given a short course of oral Ativan which can be used as needed for anxiety or racing thoughts. You need to keep your appointment with your primary care doctor tomorrow, to discuss the lab results obtained yesterday (you had a borderline elevation in your ALT, one of your liver enzymes, without any other evidence of damage or injury to your liver) as they may want to repeat these laboratory studies to ensure that they are improving. Additionally, you should discuss this visit and any changes that should be made to your dosing of medications. Please follow-up with your mental health providers in the outpatient environment, and return to care if you have any concerns. Thank you for allowing us to be part of your care. HPI General Mode of arrival: ambulatory . Date/Time Provider Initiated Documentation: 01/02/25 20:33 . Limitations to Documentation: no limitations . Information obtained by: patient, family and old records reviewed . HPI Narrative: This is a 29-year-old female patient with a past medical history of anxiety and depression, IBS, GERD, presenting today for anxiety, shakiness, racing heart. The patient reports that she was recently started on Adderall, extended release, on Wednesday of this week. She reports that she already takes Wellbutrin, 450 mg, which was recently increased a few weeks to months ago. She reports that on Wednesday night she started to feel really weird, anxious, shaky, like her thoughts are racing. She stopped taking the Adderall after her dose on Wednesday. She reports that she feels terrible, states that she just wants to run away and her thoughts are continuing to race. She does deny suicidal or homicidal ideation. She reports that she had some labs drawn by her primary care provider, and has a visit with them tomorrow to discuss a very slightly elevated ALT to 70 which was incidentally noted. She presents today due to a family concern for potential serotonin syndrome. The patient denies comorbid substance or intoxicant use, chest pain, abdominal pain. She has had some intermittent nausea and vomiting, states that she has been able to maintain her hydration. Related Data Home Medications ?Medication ?Instructions ?Recorded ?Confirmed bupropion HCl 300 mg 24 hr tablet, 300 mg PO DAILY 01/0401/02/25 extended release bupropion HCl 150 mg 24 hr tablet, mg PO 01/02/25 extended release dextroamphetamine-amphetamine ER PO 01/02/25 20 mg 24hr capsule,extend release triamcinolone acetonide 0.1 % applic topical 01/02/25 topical cream Allergies Allergy/AdvReac Type Severity Reaction Status Date / Time No Known Allergies Allergy Verified 01/02/25 20:10 General Stated Complaint: GenMedical ANETA: 3 Exam Narrative Exam Narrative: Gen: awake and alert, appears quite anxious HEENT: PERRL, EOMs full and without nystagmus. External ears and nose normal, mucous membranes moist. Neck: Supple, full range of motion, no observable masses Lungs: No increased work of breathing, lung sounds clear and equal bilaterally without wheezes, rhonchi, or rales. CV: Heart with tachycardic rate and regular rhythm, no murmurs auscultated. Strong and symmetrical radial pulses. Abdomen: Soft, nondistended, non-tender to palpation. No rigidity, rebound tenderness, or guarding. MSK: No joint swelling, no redness. Full ROM without limitation, no external traumatic findings. Skin: No rashes or lesions to visualized skin. Normal color, warm, and dry. Neuro: Cranial nerves II-XII intact and symmetrical bilaterally. 5/5 strength in all muscle groups x4 extremities. No sensory deficits. Ambulates with steady gait. No tremor, no clonus, no sweating Psych: Anxious with racing thoughts, but linear thought process, forward thinking, no suicidal or homicidal ideation. Course Vital Signs Vital signs: Vital Signs Temperature 36.9 C 01/02/25 19:58 Pulse 120 H 01/02/25 19:58 Respiratory Rate 24 01/02/25 19:58 Blood Pressure 165/89 H 01/02/25 19:58 Pulse Oximetry 99 01/02/25 19:58 Temperature 36.9 C 01/02/25 19:58 Temperature Source Oral 01/02/25 19:58 Pulse 120 H 01/02/25 19:58 Respiratory Rate 24 01/02/25 19:58 Blood Pressure 165/89 H 01/02/25 19:58 Blood Pressure Position Sitting 01/02/25 19:58 Pulse Oximetry 99 01/02/25 19:58 Oxygen Delivery Method Room Air 01/02/25 19:58 Oxygen Flow Rate 0 01/02/25 19:58 Pain Level 6 01/02/25 19:58 Medical Decision Making This is a 29-year-old female patient presenting for evaluation of palpitations and tachycardia, anxiety, and strange body sensations in the setting of recently starting Adderall. My differential includes but is not limited to medication effect, certainly considered serotonin syndrome though the patient does not have the characteristic clonus that would be expected with this pathology. She is not on any antipsychotics which would increase her risk for NMS. Considered intoxication and withdrawal syndrome, though the patient does not report same. Consider dehydration, arrhythmia, no chest pain to suggest ACS and the patient is young and without cardiac risk factors. Considered metabolic and electrolyte derangements, kidney injury, liver injury, hyperthyroidism. We obtained an EKG which shows a sinus tachycardia, no STEMI or ectopy, no priors available for comparison. Will obtain labs to include CBC, CMP, magnesium, TSH, urinalysis and UDS. I will provide the patient with intravenous Valium given the IV Ativan shortage, as well as a liter of IV fluids. -I independently interpreted the laboratory studies, which show no significant leukocytosis, anemia, or thrombocytopenia. The chemistry panel is without evidence of electrolyte abnormality, kidney dysfunction, or liver injury, though the patient does have the very slight elevation in her ALT to 70 that was noted in the outpatient environment. TSH within normal limits, urinalysis noninfectious, and the UDS is negative. The patient's tachycardia improved after fluids and Valium, I reevaluated her an d she states that she is feeling slightly better. We did have an extended discussion regarding her likely effects from her medication, the extended release Adderall should slowly get out of her system and improve her symptoms over time. I also discussed the need to follow-up with her outpatient mental health providers and PCP to discuss long-term changes to her medications. She did not have any evidence of clonus or serotonin syndrome on my repeat examination after stabilization. I do not see an indication at this time for the patient to be held for psychiatric evaluation in the hospital given her lack of suicidal or homicidal ideation. I provided the patient with a take-home bottle with 3 Ativan to help manage symptoms of panic and anxiety while awaiting her PCP visit tomorrow. At this time, the patient has had a full medical evaluation and is safe for discharge to home. They are hemodynamically stable, ambulatory, and tolerating PO. They are understanding of the follow-up plan and return precautions. They left our facility without incident. Joceline Perales MD [facility] All Active Problems (Updated 01/02/25 @ 22:43 by Joceline Perales MD) Anxiety (Chronic) Adverse effects of medication (Acute) Chronic anal fissure (Acute) IBS (irritable bowel syndrome) (Chronic) Nausea (Acute) Chronic diarrhea (Acute) Epigastric pain (Acute) GERD (gastroesophageal reflux disease) (Chronic) Painless rectal bleeding (Acute) per PCP [facility] [place], intermittent for months Heavy menstrual bleeding (Acute) Pelvic pain (Acute) Anxiety (Chronic) Depression (Chronic) Medical History (Updated 01/02/25 @ 22:43 by Joceline Perales MD) Family history of Crohn's disease Endometriosis Inflammatory bowel disease Hypertension affecting Anemia Family History (Updated 12/09/21 @ 11:56 by Olivia Seth RN) Other Family history of clotting disorder Hyperlipidemia Hypertension Osteoporosis Stroke Thyroid disease Social History (Updated 12/09/21 @ 12:01 by Olivia Seth RN) Smoking/Tobacco Use Status: Never Smoking risk assessment performed?: Yes Alcohol Intake: former Drug use: Occasionally Substance use type: marijuana Household members: children Housing: house current occupation: [employer] Do you feel safe at home: Yes Do you feel safe in your relationship?: Yes Female Reproductive History Menstrual Duration of menses: 3-5 days control method: none History History 1 Para 1 Hx # Term Pregnancies Multiple births Hx # Pregnancies Ectopic pregnancies AB induced Hx Number of Living Children AB spontaneous Past Pregnancies Del. Date GA/Weeks # Preg Succ Route Wgt Sex Labor Lgth Anesth esia Location Prov Complic 08/29/19 40 No Yes vaginal 3401.943 g Male Delivery Date: 08/29/19 Last Updated by: Olivia Seth pt reports pre- eclampsia- Travis, born in [place], [place]
[2025-01-02] MEDS: Lactated Ringers 1,000 ML 1000 ML IV (21:10)
[2025-01-02 21:25] LABS: Glucose Negative (Negative)
[2025-01-02 21:34] LABS: Abs Immature Grans 0.02 10^3/uL (0.0-0.06); HCT 43.4 % (36.0-46.0); HGB 14.5 g/dL (11.2-15.7); Immature Grans % 0.3 %; MCH 29.8 pg (27.0-33.0); MCHC 33.4 % (32.0-36.0); MCV 89 fL (80-95); RBC 4.86 10^6/uL (3.93-5.22); RDW 12.4 % (11.7-14.6); RDW-SD 40.8 fL; WBC 6.35 10^3/uL (4.4-10.8)
[2025-01-02 21:48] LABS: ALT 70 U/L (14-59); AST 19 U/L (15-37); Albumin 4.0 g/dL (3.4-5.0); Alkaline Phosphatase 110 U/L (46-116); Anion Gap 11.7 mmol/L (3-11); BUN 14 mg/dL (7-18); Bilirubin, Total 0.5 mg/dL (0.2-1.0); CO2 23.3 mmol/L (21.0-32.0); Calcium 9.5 mg/dL (8.5-10.1); Chloride 105 mmol/L (98-107); Estimated GFR 102.86 (mL/min/1.73m2); Glucose 117 mg/dL (74-106); Magnesium 2.0 mg/dL (1.8-2.4); Potassium 3.5 mmol/L (3.5-5.1); Sodium 140 mmol/L (136-145); TSH (W/Ref FT4) 1.41 uIU/mL (0.36-3.74); Total Protein 7.8 g/dL (6.4-8.2)
[2025-01-02 21:49] LABS: RBC Morphology Normal
[2025-01-02 22:28] VITALS: BP 124/74; PULSE 107; RESP 18; O2SAT 99
[2025-01-02 22:29] VITALS: RESP 18
[2025-01-02 22:35] LABS: Cannabinoids THC Negative (Negative); METHADONE URINE SCREEN Negative (Negative)
[2025-01-02] MEDS: LORazepam 1 MG TAB 3 MG PO (22:50)
== END 2025-01-02 22:53 | disposition home or self-care (01) ==
PROVIDERS: Emergency Provider Emergency Medicine; PCP Nurse Practitioner Family
DX: F41.9 Anxiety disorder, unspecified; T50.995A Adverse effect of other drugs, medicaments and biological substances, initial encounter; R11.2 Nausea with vomiting, unspecified
CPT/HCPCS: 80053; 80307; 81025; 93005; 96361; 96374; 99284; 81003; 83735; 84443; 85025; 93010; 99283; J3360

== ENCOUNTER 2025-04-11 02:35 | Outpatient (CLI) | payer MEDICAID, SELFPAY ==
[2025-04-11 09:43] LABS: Abs Immature Grans 0.01 10^3/uL (0.0-0.06); HCT 40.4 % (36.0-46.0); HGB 13.3 g/dL (11.2-15.7); Immature Grans % 0.2 %; MCH 29.5 pg (27.0-33.0); MCHC 32.9 % (32.0-36.0); MCV 90 fL (80-95); MPV 10.4 fL (8.0-11.0); Platelet Count 222 10^3/uL (130-400); RBC 4.51 10^6/uL (3.93-5.22); RDW 12.1 % (11.7-14.6); RDW-SD 40.0 fL; WBC 4.61 10^3/uL (4.4-10.8)
[2025-04-11 10:14] LABS: Cannabinoids THC Negative (Negative); Fentanyl Scr w/Rflx to Conf, U Negative (Negative)
[2025-04-11 10:16] LABS: Hemoglobin A1C 5.0 % (<5.7)
[2025-04-11 10:32] LABS: ALT 72 U/L (10-49); AST 33 U/L (<34); Albumin 4.5 g/dL (3.2-5.0); Alkaline Phosphatase 88 U/L (46-116); Anion Gap 7.7 mmol/L (3-11); BUN 15 mg/dL (9-23); Bilirubin, Total 0.5 mg/dL (0.2-1.2); CO2 24.3 mmol/L (20.0-31.0); Calcium 9.3 mg/dL (8.3-10.6); Chloride 107 mmol/L (98-107); Glucose 87 mg/dL (74-106); Potassium 4.4 mmol/L (3.5-5.1); Sodium 139 mmol/L (136-145); Total Protein 6.9 g/dL (5.7-8.2)
[2025-04-11 10:33] LABS: Iron 69 ug/dL (50-170); Total Iron Binding Capacity 355 ug/dL (250-425); Transferrin Sat 19 % (15-50)
[2025-04-11 10:36] LABS: Vitamin D 25 Total 23 ng/mL (30-100)
[2025-04-11 10:44] LABS: TSH (W/Ref FT4) 1.08 uIU/mL (0.55-4.78); Vitamin B12 694 pg/mL (211-911)
[2025-04-11 17:38] LABS: T3, Total 162 ng/dL (82-158)
[2025-04-11 19:18] LABS: FSH 3.8 mIU/mL (See Note)
[2025-04-16 10:45] LABS: Xylazine, Confirmation Urine Negative ng/mL (<50)
== END 2025-04-11 02:36 | disposition home or self-care (01) ==
LOC: LBO 02:35
PROVIDERS: PCP Nurse Practitioner Family; Visit Provider Nurse Practitioner Psychiatric/Mental Health
DX: F42.2 Mixed obsessional thoughts and acts (principal); Z00.00 Encounter for general adult medical examination without abnormal findings; D50.0 Iron deficiency anemia secondary to blood loss (chronic); E55.9 Vitamin D deficiency, unspecified
CPT/HCPCS: 36415; 80053; 80307; 80375; 82306; 82607; 82670; 82679; 83001; 83036; 83540; 83550; 84443; 84480; 85025